=== PATIENT | female | born 1985 | race Caucasian/White ===

== ENCOUNTER 2016-06-28 17:38 | Emergency (ER) | payer OTHER ==
[2016-06-28 17:42] VITALS: BP 119/81; PULSE 90; RESP 16; TEMP 98.3
--- NOTE | 2016-06-28 18:49 | ED ---
Skin/Abscess/FB HPI - General Chief complaint: Skin/Abscess/Foreign Body Stated complaint: Abscess Time Seen by Provider: 06/28/16 18:34 Source: patient, RN notes reviewed Mode of arrival: ambulatory Limitations: no limitations - History of Present Illness Initial comments: 30-year-old female presents emergency Department chief complaint chest abscess. Patient states started a few days ago. She did have one similar this on her right hip in the past. Patient states she was never told she had MRSA. Patient denies fever or chills. She states it is very painful but there is no drainage. Patient denies any trauma - Related Data Previous Rx's Medication Instructions Recorded Sulfamethox-Tmp 800-160Mg [Bactrim 2 each PO Q12HR #56 tab 11/28/15 DS 800-160 mg] Hydrocodone/Acetaminophen [[place] 1 tab PO Q6HR PRN #15 tab 06/28/16 5-325] Sulfamethox-Tmp 800-160Mg [Bactrim 1 each PO Q12HR #20 tab 06/28/16 Ds] Allergies Allergy/AdvReac Type Severity Reaction Status Date / Time amoxicillin [Amoxicillin] Allergy Rash/Hives Verified 06/28/16 17:41 azithromycin AdvReac Intermediate Difficulty Verified 06/28/16 17:41 swallowing Review of Systems ROS Statement: Those systems with pertinent positive or pertinent negative responses have been documented in the HPI. ROS Other: All systems not noted in ROS Statement are negative. Past Medical History Past Medical History: No Reported History Additional Past Medical History / Comment(s): Obstetrical history: 3 Uncomplicated History of Any Multi-Drug Resistant Organisms: None Reported Past Surgical History: Tubal Ligation Past Anesthesia/Blood Transfusion Reactions: No Reported Reaction Past Psychological History: No Psychological Hx Reported Smoking Status: Current every day smoker Past Alcohol Use History: Occasional Past Drug Use History: None Reported - Past Family History Mother Family Medical History: No Reported History General Exam Limitations: no limitations General appearance: alert, in no apparent distress Neck exam: Present: normal inspection. Absent: tenderness, meningismus, lymphadenopathy Respiratory exam: Present: normal lung sounds bilaterally. Absent: respiratory distress, wheezes, rales, rhonchi, stridor Cardiovascular Exam: Present: regular rate, normal rhythm, normal heart sounds. Absent: systolic murmur, diastolic murmur, rubs, gallop, clicks Skin exam: Present: other (2 cm minimal fluctuant abscess on left breast towards the sternal border) Course Vital Signs 06/28/16 17:39 Temperature 98.3 F Pulse Rate 90 Respiratory 16 Rate Blood Pressure 119/81 O2 Sat by Pulse 100 Oximetry Procedures - Incision & Drainage Consent Obtained: verbal consent Site: chest Size (cm): 2 Anesthetic Used: lidocaine 1%, without epi Amount (mLs): 4 I&D Cleaning Method: Chloroprep Scalpel Used: #11 I&D Drainage Obtained: Pus, Blood Culture Obtained?: No Patient Tolerated Procedure: well, no complications Medical Decision Making - Medical Decision Making 30-year-old female presented for chest abscess. Patient's abscess was I&D to the emergency department when culture was obtained. Patient was placed on Bactrim at this time return parameters discussed warm compresses 20 minutes at a time. Disposition Clinical Impression: Chest wall abscess Disposition: HOME SELF-CARE Condition: Stable Instructions: Abscess Incision and Drainage (ED) Additional Instructions: Please return to the Emergency Department if symptoms worsen or any other concerns. Prescriptions: Hydrocodone/Acetaminophen [[place] 5-325] 1 tab PO Q6HR PRN #15 tab PRN Reason: Pain Sulfamethox-Tmp 800-160Mg [Bactrim Ds] 1 each PO Q12HR #20 tab Referrals: Vamsi Lincoln MD [Primary Care Provider] - 1-2 days Time of Disposition: 18:48
== END 2016-06-28 18:57 | disposition home or self-care (01) ==
LOC: EC 17:38
DX: L02.213 Cutaneous abscess of chest wall (principal); F17.200 Nicotine dependence, unspecified, uncomplicated; Z88.0 Allergy status to penicillin; Z88.1 Allergy status to other antibiotic agents
CPT/HCPCS: 10060; 87070; 87077; 87186; 87205; 99283

== ENCOUNTER 2016-07-07 16:12 | Emergency (ER) | payer OTHER ==
[2016-07-07 16:19] VITALS: RESP 18
--- NOTE | 2016-07-07 17:36 | ED ---
General Adult HPI - General Chief complaint: Skin/Abscess/Foreign Body Stated complaint: Lump on chest Time Seen by Provider: 07/07/16 17:28 Source: patient, RN notes reviewed, old records reviewed Mode of arrival: ambulatory Limitations: no limitations - History of Present Illness Initial comments: This is a 30-year-old female presenting to the emergency department with chief complaint of left breast abscess. Patient reports that she was seen here 2 weeks ago and was put on antibiotics. At that point it was drained but not much pus came out. Patient reports that they were taking the antibiotics for the past 2 weeks and seems to have grown and so gotten worse. Patient states that she's had no fever or chills. Denies any other surrounding areas of erythema or other areas of abscess.Patient denies any recent fever, chills, shortness of breath, chest pain, back pain, abdominal pain, nausea vomiting, numbness or tingling, dysuria or hematuria, constipation or diarrhea, headaches or visual changes, or any other current symptoms - Related Data Previous Rx's Medication Instructions Recorded Hydrocodone/Acetaminophen [[place] 1 tab PO Q6HR PRN #15 tab 06/28/16 5-325] Sulfamethox-Tmp 800-160Mg [Bactrim 1 each PO Q12HR #20 tab 06/28/16 Ds] Cephalexin [Keflex] 500 mg PO Q6H #40 cap 07/07/16 HYDROcodone/APAP 10-325MG [[place] 1 tab PO Q6H PRN #15 tab 07/07/16 10-325] Sulfamethox-Tmp 800-160Mg [Bactrim 2 tab PO Q12HR #40 tab 07/07/16 DS 800-160 mg] Allergies Allergy/AdvReac Type Severity Reaction Status Date / Time azithromycin Allergy Unknown Anaphylaxis Verified 07/07/16 16:19 amoxicillin [Amoxicillin] Allergy Anaphylaxis Verified 07/07/16 16:19 Review of Systems ROS Statement: Those systems with pertinent positive or pertinent negative responses have been documented in the HPI. ROS Other: All systems not noted in ROS Statement are negative. Past Medical History Past Medical History: No Reported History Additional Past Medical History / Comment(s): Obstetrical history: 3 Uncomplicated History of Any Multi-Drug Resistant Organisms: None Reported Past Surgical History: Tubal Ligation Past Anesthesia/Blood Transfusion Reactions: No Reported Reaction Past Psychological History: No Psychological Hx Reported Smoking Status: Current every day smoker Past Alcohol Use History: Occasional Past Drug Use History: None Reported - Past Family History Mother Family Medical History: No Reported History General Exam - General Exam Comments Initial Comments: 30-year-old female. No acute distress. Limitations: no limitations General appearance: alert, in no apparent distress Head exam: Present: atraumatic, normocephalic, normal inspection Eye exam: Present: normal appearance, PERRL, EOMI. Absent: scleral icterus, conjunctival injection, periorbital swelling ENT exam: Present: normal exam, mucous membranes moist Neck exam: Present: normal inspection. Absent: tenderness, meningismus, lymphadenopathy Respiratory exam: Present: normal lung sounds bilaterally, other (Left breast abscess measuring 3 cm x 4 cm.). Absent: respiratory distress, wheezes, rales, rhonchi, stridor Cardiovascular Exam: Present: regular rate, normal rhythm, normal heart sounds. Absent: systolic murmur, diastolic murmur, rubs, gallop, clicks GI/Abdominal exam: Present: soft, normal bowel sounds. Absent: distended, tenderness, guarding, rebound, rigid Extremities exam: Present: normal inspection, full ROM, normal capillary refill. Absent: tenderness, pedal edema, joint swelling, calf tenderness Back exam: Present: normal inspection Neurological exam: Present: alert, oriented X3, CN II-XII intact Psychiatric exam: Present: normal affect, normal mood Skin exam: Present: warm, dry, intact, normal color. Absent: rash Course Vital Signs 07/07/16 16:15 Temperature 97.8 F Pulse Rate 77 Respiratory 18 Rate Blood Pressure 146/93 O2 Sat by Pulse 99 Oximetry Procedures - Incision & Drainage Consent Obtained: verbal consent Time Out Performed?: Yes Site: chest (Left breast) Size (cm): 4 Anesthetic Used: lidocaine 1% Amount (mLs): 6 I&D Cleaning Method: Iodine Sterile Field Used?: Yes Scalpel Used: #11 I&D Drainage Obtained: Pus, Blood Culture Obtained?: Yes Patient Tolerated Procedure: well, no complications Medical Decision Making - Medical Decision Making This is a 30-year-old female presenting to the emergency department with chief complaint of left breast abscess. Patient reports that she was seen here 2 weeks ago and was put on antibiotics. At that point it was drained but not much pus came out. Patient reports that they were taking the antibiotics for the past week and seems to have grown and so gotten worse. Patient received incision and drainage today. Sitting without pus was drained from there. We did do iodoform packing. Patient was informed to remove the packing in 48 hours. Discussed we will increase her antibiotic dosage to Bactrim twice a day for the next 10 days. Patient understands treatment plan will comply. Return parameters were discussed. Discussed close follow-up with primary care provider as well. Disposition Clinical Impression: Left breast abscess Disposition: HOME SELF-CARE Condition: Good Instructions: Abscess Incision and Drainage (ED) Additional Instructions: Remove the packing in 48 hours. Monitor for any worsening signs of redness. Keep area covered, wash it every day. Return to the emergency department if any alarming signs or symptoms occur. Follow-up with a primary care doctor within the next 2-3 days. Prescriptions: Cephalexin [Keflex] 500 mg PO Q6H #40 cap HYDROcodone/APAP 10-325MG [[place] 10-325] 1 tab PO Q6H PRN #15 tab PRN Reason: Pain Sulfamethox-Tmp 800-160Mg [Bactrim DS 800-160 mg] 2 tab PO Q12HR #40 tab Referrals: Vamsi Lincoln MD [Primary Care Provider] - 1-2 days Time of Disposition: 17:59
[2016-07-07 18:12] VITALS: BP 113/75; PULSE 86; TEMP 99.5
== END 2016-07-07 18:12 | disposition home or self-care (01) ==
LOC: EC 16:12
DX: N61.1 Abscess of the breast and nipple (principal); F17.200 Nicotine dependence, unspecified, uncomplicated; Z88.0 Allergy status to penicillin; Z88.1 Allergy status to other antibiotic agents
CPT/HCPCS: 10060; 87070; 87205; 99284

== ENCOUNTER 2016-12-24 12:23 | Emergency (ER) | payer OTHER ==
[2016-12-24 12:48] VITALS: RESP 18
[2016-12-24] MEDS ORDERED: IBUPROFEN 600 MG TAB PO STA (12:55)
--- NOTE | 2016-12-24 12:59 | ED ---
Upper Extremity HPI - General Chief Complaint: Extremity Injury, Upper Stated Complaint: Finger Injury Time Seen by Provider: 12/24/16 12:49 Source: patient Mode of arrival: ambulatory Limitations: no limitations - History of Present Illness Initial Comments: This is a 31-year-old female patient who presents today for evaluation of an injury to her left pinky finger. Patient states last evening she was bringing groceries into the house when she tripped and fell injuring the finger. She denies hitting her head or losing consciousness during the fall. Denies any other injuries. States that her finger has been swollen and throbbing since the injury. She states she did take Tylenol however this did not help with the pain. She denies any numbness or tingling to the finger. States she is able to move it but it is very painful. Patient denies any headache, neck pain, back pain, chest pain, shortness of breath, dizziness, weakness, abdominal pain, nausea, vomiting, or difficulties with bowel movements or urination. - Related Data Home Medications Medication Instructions Recorded Confirmed Sulfamethox-Tmp 800-160Mg [Bactrim 1 tab PO Q12HR 07/07/16 07/07/16 Ds] Previous Rx's Medication Instructions Recorded Hydrocodone/Acetaminophen [[place] 1 tab PO Q6HR PRN #15 tab 06/28/16 5-325] Cephalexin [Keflex] 500 mg PO Q6H #40 cap 07/07/16 HYDROcodone/APAP 10-325MG [[place] 1 tab PO Q6H PRN #15 tab 07/07/16 10-325] Sulfamethox-Tmp 800-160Mg [Bactrim 2 tab PO Q12HR #40 tab 07/07/16 DS 800-160 mg] Ibuprofen [Motrin] 600 mg PO Q6HR PRN #20 tab 12/24/16 Allergies Allergy/AdvReac Type Severity Reaction Status Date / Time azithromycin Allergy Unknown Anaphylaxis Verified 12/24/16 12:48 amoxicillin [Amoxicillin] Allergy Anaphylaxis Verified 12/24/16 12:48 Review of Systems ROS Statement: Those systems with pertinent positive or pertinent negative responses have been documented in the HPI. ROS Other: All systems not noted in ROS Statement are negative. Past Medical History Past Medical History: No Reported History Additional Past Medical History / Comment(s): Obstetrical history: 3 Uncomplicated History of Any Multi-Drug Resistant Organisms: None Reported Past Surgical History: Tubal Ligation Past Anesthesia/Blood Transfusion Reactions: No Reported Reaction Past Psychological History: No Psychological Hx Reported Smoking Status: Current every day smoker Past Alcohol Use History: Rare Past Drug Use History: None Reported - Past Family History Mother Family Medical History: No Reported History General Exam Limitations: no limitations General appearance: alert, in no apparent distress, other (This is a well- developed, well-nourished adult female patient in no acute distress. Vital signs upon presentation were temperature 98.0F, pulse 102, respirations 18, blood pressure 139/82, pulse ox 100% on room air.) Eye exam: Present: normal appearance, PERRL, EOMI. Absent: scleral icterus, conjunctival injection, periorbital swelling Neck exam: Present: other Respiratory exam: Present: normal lung sounds bilaterally. Absent: respiratory distress, wheezes, rales, rhonchi, stridor Cardiovascular Exam: Present: regular rate, normal rhythm, normal heart sounds. Absent: systolic murmur, diastolic murmur, rubs, gallop, clicks Extremities exam: Present: full ROM, tenderness (Tenderness over the distal left pinky.), normal capillary refill, other (Swelling noted to the distal aspect of the left pinky. Skin is otherwise pink, warm, and dry. Cap refills less than 3 seconds. Radial pulses 2+ and equal bilaterally.). Absent: pedal edema, joint swelling, calf tenderness Neurological exam: Present: alert, oriented X3, CN II-XII intact Psychiatric exam: Present: normal affect, normal mood Skin exam: Present: warm, dry, intact, normal color. Absent: rash Course Vital Signs 12/24/16 12/24/16 12:46 13:48 Temperature 98.0 F 98 F Pulse Rate 102 H 97 Respiratory 18 18 Rate Blood Pressure 139/82 126/69 O2 Sat by Pulse 100 10 L Oximetry Medical Decision Making - Medical Decision Making 31-year-old female patient presented to the emergency department today for evaluation of injury to her left fifth digit. Physical exam did reveal some swelling to the distal tip of the finger. X-ray was obtained and did show an avulsion fracture. Patient was placed in a finger splint and instructed to rest and ice the extremity. She is instructed to follow-up with her primary care physician for recheck in 1-2 days. She is instructed to return here immediately for any new, worsening, or concerning symptoms. She verbalizes understanding and agrees with this plan. - Radiology Data Radiology results: report reviewed, image reviewed 4 view x-ray of the left fifth digit shows an avulsion fracture of the dorsal aspect of the base of the terminal phalanx. No metacarpal have her malady is seen. Impression by Dr. Bingham shows avulsion fracture of the dorsal plate of the distal phalanx of the left small digit. Disposition Clinical Impression: Finger fracture, left Disposition: HOME SELF-CARE Condition: Good Instructions: Finger Fracture (ED) Additional Instructions: Wear splint for comfort. Limit use of the left hand. Take pain medication as directed. Follow-up with her primary care physician for recheck in 1-2 days. Return here immediately for any new, worsening, or concerning symptoms. Prescriptions: Ibuprofen [Motrin] 600 mg PO Q6HR PRN #20 tab PRN Reason: Pain Referrals: Vamsi Lincoln MD [Primary Care Provider] - 1-2 days Time of Disposition: 13:42
--- NOTE | 2016-12-24 13:17 | XR ---
EXAMINATION TYPE: XR finger LT , 4 VIEWS DATE OF EXAM ORDERED: 12/24/2016 HISTORY: Pain. COMPARISON: None. FINDINGS: There is avulsion fracture of the dorsal aspect of the base of the terminal phalanx of the left fifth digit. No metacarpal abnormality is seen. IMPRESSION: AVULSION FRACTURE OF THE DORSAL PLATE OF THE DISTAL PHALANX OF THE LEFT SMALL DIGIT.
[2016-12-24 13:55] VITALS: BP 126/69; PULSE 97; TEMP 98
== END 2016-12-24 13:49 | disposition home or self-care (01) ==
LOC: EC 12:23
DX: S62.637A Displaced fracture of distal phalanx of left little finger, initial encounter for closed fracture (principal); F17.200 Nicotine dependence, unspecified, uncomplicated; Z88.0 Allergy status to penicillin; Z88.1 Allergy status to other antibiotic agents; W01.0XXA Fall on same level from slipping, tripping and stumbling without subsequent striking against object, initial encounter; Y93.89 Activity, other specified
CPT/HCPCS: 99283

== ENCOUNTER 2017-12-27 02:03 | Emergency (ER) | payer OTHER ==
[2017-12-27 02:13] VITALS: RESP 16
[2017-12-27] MEDS ORDERED: HYDROcodone/APAP 5-325MG 1 EACH TAB PO STA (02:22)
[2017-12-27] MEDS ORDERED: TOPICAL SKIN ADHESIVE 1 EACH AMP TOPICAL ONE (02:23)
[2017-12-27] MEDS ORDERED: IBUPROFEN 600 MG TAB PO STA (02:23)
[2017-12-27] MEDS ORDERED: DIPH,PERTUS(ACELL)TETVAC-LF 0.5 ML VIAL IM ONE (02:34)
--- NOTE | 2017-12-27 02:35 | ED ---
Fall HPI - General Chief Complaint: Fall Stated Complaint: fall Time Seen by Provider: 12/27/17 02:14 Source: patient Mode of arrival: ambulatory - History of Present Illness Initial Comments: 32-year-old female patient presents to the emergency department today for evaluation of facial injury. Patient states around 145 this morning she tripped over a shoe and fell striking her face on the dining room table. Patient denies any loss of consciousness. She denies any current headache, blurred vision, double vision, nausea, vomiting, dizziness, or weakness. Patient states she did sustain a laceration to the right maxillary region and has significant pain to the area. She denies any pain to the eye globe or foreign body sensation to the eye. Patient denies any epistaxis, neck pain, back pain, or other injuries. Patient denies any chest pain, shortness of breath , abdominal pain, nausea, vomiting, or difficulties with bowel movements or urination. - Related Data Home Medications Medication Instructions Recorded Confirmed Sulfamethox-Tmp 800-160Mg [Bactrim 1 tab PO Q12HR 07/07/16 07/07/16 Ds] Previous Rx's Medication Instructions Recorded Hydrocodone/Acetaminophen [[place] 1 tab PO Q6HR PRN #15 tab 06/28/16 5-325] Cephalexin [Keflex] 500 mg PO Q6H #40 cap 07/07/16 HYDROcodone/APAP 10-325MG [[place] 1 tab PO Q6H PRN #15 tab 07/07/16 10-325] Sulfamethox-Tmp 800-160Mg [Bactrim 2 tab PO Q12HR #40 tab 07/07/16 DS 800-160 mg] Ibuprofen [Motrin] 600 mg PO Q6HR PRN #20 tab 12/24/16 Ibuprofen [Motrin] 600 mg PO Q8HR PRN #30 tab 12/27/17 Allergies Allergy/AdvReac Type Severity Reaction Status Date / Time azithromycin Allergy Unknown Anaphylaxis Verified 12/27/17 02:13 amoxicillin [Amoxicillin] Allergy Anaphylaxis Verified 12/27/17 02:13 Review of Systems ROS Statement: Those systems with pertinent positive or pertinent negative responses have been documented in the HPI. ROS Other: All systems not noted in ROS Statement are negative. Past Medical History Past Medical History: No Reported History Additional Past Medical History / Comment(s): Obstetrical history: 3 Uncomplicated History of Any Multi-Drug Resistant Organisms: None Reported Past Surgical History: Tubal Ligation Past Anesthesia/Blood Transfusion Reactions: No Reported Reaction Past Psychological History: No Psychological Hx Reported Smoking Status: Current every day smoker Past Alcohol Use History: Rare Past Drug Use History: None Reported - Past Family History Mother Family Medical History: No Reported History General Exam Limitations: no limitations General appearance: alert, in no apparent distress, other (This is a well- developed, well-nourished adult female patient in no acute distress. Vital signs upon presentation are temperature 98.6F, pulse 129, respirations 16, blood pressure 119/76, pulse ox 97% on room air.) Eye exam: Present: normal appearance, PERRL, EOMI, periorbital swelling ( Swelling to the suborbital region), periorbital tenderness (Right suborbital tenderness), other (There is ecchymosis, swelling, and 1 cm laceration to the right suborbital region. Extraocular movements are intact. There is no evidence of globe injury. No hyphema.). Absent: scleral icterus, conjunctival injection Course Vital Signs 12/27/17 02:08 Temperature 98.6 F Pulse Rate 129 H Respiratory 16 Rate Blood Pressure 119/76 O2 Sat by Pulse 97 Oximetry Medical Decision Making - Medical Decision Making 32-year-old female patient presented to the emergency department today for evaluation of laceration to the face and facial contusion after expressing a trip and fall accident at home. Physical examination did reveal a 1 cm laceration to the right maxillary region, some swelling and ecchymosis noted to the right suborbital region. Patient is neurologically intact with no loss of consciousness, denies current headache. Did repair laceration using exofin skin adhesive. CT facial bones was obtained and showed no evidence of fracture. Patient will be discharged home with prescription for ibuprofen for pain control. She is instructed to apply ice to the area. Return parameters discussed in detail. He verbalizes understanding and agree with this plan. - Radiology Data Radiology results: report reviewed CT facial bones without contrast was obtained. Report was reviewed in its entirety. Impression by Dr. Villavicencio shows small mucous retention cyst in the maxillary sinuses. No fracture seen. Disposition Clinical Impression: Black eye of right side, Facial laceration Disposition: HOME SELF-CARE Condition: Good Instructions: Laceration (ED), Black Eye (ED), Facial Contusion (ED) Additional Instructions: Apply ice to the painful areas. Do not scrub or pick at glue. Let this dissolve on its own. Monitor for signs of infection including but not limited to redness , swelling, drainage of pus, fever, or chills. Follow-up through primary care physician for recheck in 1-2 days. Return immediately for any new, worsening, or concerning symptoms. Prescriptions: Ibuprofen [Motrin] 600 mg PO Q8HR PRN #30 tab PRN Reason: Pain Is patient prescribed a controlled substance at d/c from ED?: No Referrals: Vamsi Lincoln MD [Primary Care Provider] - 1-2 days Time of Disposition: 03:12
--- NOTE | 2017-12-27 02:48 | CT ---
EXAMINATION TYPE: CT facial bones wo con DATE OF EXAM: 12/27/2017 COMPARISON: None HISTORY: Fall, left facial lacerations CT DLP: 3191.60 mGycm Automated exposure control for dose reduction was used. TECHNIQUE: CT scan of the sinuses is performed without contrast, axial images are obtained, coronal r eformatted images are also reviewed. FINDINGS: There are small mucous retention cysts in the maxillary sinuses. There is no evidence of a blowout fracture. Orbital margins are intact. There is no evidence of retro-orbital mass. Nasal bone appears intact. Maxilla is intact. Zygomatic arches appear normal. The mandibular ring appears intact . Temporomandibular joints appear normal. Mastoid air cells appear normal. Temporal bones appear intact. IMPRESSION: Small mucous retention cysts in the maxillary sinuses. No fracture seen.
[2017-12-27 04:06] VITALS: BP 119/97; PULSE 97; TEMP 98.1
== END 2017-12-27 03:48 | disposition home or self-care (01) ==
LOC: EC 02:03
DX: S01.81XA Laceration without foreign body of other part of head, initial encounter (principal); Z23 Encounter for immunization; F17.200 Nicotine dependence, unspecified, uncomplicated; Z88.0 Allergy status to penicillin; Z88.1 Allergy status to other antibiotic agents; W01.198A Fall on same level from slipping, tripping and stumbling with subsequent striking against other object, initial encounter; Y92.009 Unspecified place in unspecified non-institutional (private) residence as the place of occurrence of the external cause
CPT/HCPCS: 70486; 90471; 90715; 99284

== ENCOUNTER 2018-06-20 10:39 | Emergency (ER) | payer OTHER ==
[2018-06-20 10:43] VITALS: BP 127/84; PULSE 97; RESP 20; TEMP 97.8
[2018-06-20] MEDS ORDERED: LIDOCAINE 1% INJ 10MG/ML (20 ML MDV) SQ ONE (10:54)
--- NOTE | 2018-06-20 11:23 | ED ---
General Adult HPI - General Chief complaint: Skin/Abscess/Foreign Body Stated complaint: abscess behind ear Time Seen by Provider: 06/20/18 10:48 Source: patient, RN notes reviewed Mode of arrival: ambulatory Limitations: no limitations - History of Present Illness Initial comments: Patient is a pleasant 32-year-old female presenting to the emergency Department with swelling behind her left ear. Patient states there has been some drainage. Patient has had similar symptoms 3 times previously and had drainage done. Patient states that is causing discomfort. No other area of involvement. Patient has had similar problems in her hip and breast previously as well. None at this time. No fevers. Patient has not seen an ENT previously for this. - Related Data Previous Rx's Medication Instructions Recorded Sulfamethox-Tmp 800-160Mg [Bactrim 2 each PO Q12HR #40 tab 06/20/18 DS 800-160 mg] Allergies Allergy/AdvReac Type Severity Reaction Status Date / Time azithromycin Allergy Unknown Anaphylaxis Verified 06/20/18 10:59 amoxicillin [Amoxicillin] Allergy Anaphylaxis Verified 06/20/18 10:59 Review of Systems ROS Statement: Those systems with pertinent positive or pertinent negative responses have been documented in the HPI. ROS Other: All systems not noted in ROS Statement are negative. Constitutional: Denies: fever Eyes: Denies: eye pain ENT: Reports: as per HPI Respiratory: Denies: cough Cardiovascular: Denies: chest pain Endocrine: Denies: fatigue Gastrointestinal: Denies: abdominal pain Genitourinary: Denies: dysuria Musculoskeletal: Denies: back pain Skin: Reports: as per HPI Past Medical History Past Medical History: No Reported History Additional Past Medical History / Comment(s): Obstetrical history: 3 Uncomplicated History of Any Multi-Drug Resistant Organisms: None Reported Past Surgical History: Tubal Ligation Past Anesthesia/Blood Transfusion Reactions: No Reported Reaction Past Psychological History: No Psychological Hx Reported Smoking Status: Current every day smoker Past Alcohol Use History: Rare Past Drug Use History: None Reported - Past Family History Mother Family Medical History: No Reported History General Exam Limitations: no limitations General appearance: alert, in no apparent distress Head exam: Present: atraumatic Eye exam: Present: normal appearance ENT exam: Present: other (Swelling posterior to the left ear) Neck exam: Present: normal inspection Respiratory exam: Present: normal lung sounds bilaterally Cardiovascular Exam: Present: regular rate, normal rhythm GI/Abdominal exam: Present: soft. Absent: tenderness Neurological exam: Present: alert Psychiatric exam: Present: normal affect, normal mood Skin exam: Present: other (Posterior to the left ear there is approximately 2 cm area of soft tissue swelling with firmness/fluctuance. There is tenderness and erythema.) Course Vital Signs 06/20/18 10:41 Temperature 97.8 F Pulse Rate 97 Respiratory 20 Rate Blood Pressure 127/84 O2 Sat by Pulse 99 Oximetry Procedures - Incision & Drainage Consent Obtained: verbal consent Site: face (Posterior to the left ear) Size (cm): 2 Anesthetic Used: lidocaine 1% I&D Cleaning Method: Betadine Scalpel Used: #11 I&D Drainage Obtained: Pus Culture Obtained?: Yes Patient Tolerated Procedure: well, no complications Disposition Clinical Impression: Abscess, postauricular Disposition: HOME SELF-CARE Condition: Stable Instructions (If sedation given, give patient instructions): Abscess (ED) Additional Instructions: Please follow-up with primary care physician in the next couple days for recheck. Please also follow-up with ENT. Return for increased pain, swelling, redness, fevers, hearing loss, facial weakness, worsening symptoms or other concerns. Prescriptions: Sulfamethox-Tmp 800-160Mg [Bactrim DS 800-160 mg] 2 each PO Q12HR #40 tab Is patient prescribed a controlled substance at d/c from ED?: No Referrals: Vamsi Lincoln MD [Primary Care Provider] - 1-2 days Ben Mckay MD [STAFF PHYSICIAN] - 1-2 days Time of Disposition: 11:25
== END 2018-06-20 11:42 | disposition home or self-care (01) ==
LOC: EC 10:39
DX: H60.02 Abscess of left external ear (principal); F17.200 Nicotine dependence, unspecified, uncomplicated; Z88.0 Allergy status to penicillin; Z88.1 Allergy status to other antibiotic agents
CPT/HCPCS: 87070; 87205; 99283; 69000; J2001

== ENCOUNTER 2018-07-08 17:27 | Emergency (ER) | payer OTHER ==
[2018-07-08 17:31] VITALS: BP 116/78; PULSE 72; RESP 18; TEMP 98.9
--- NOTE | 2018-07-08 18:33 | ED ---
General Adult HPI - General Chief complaint: ENT Stated complaint: ENT Time Seen by Provider: 07/08/18 17:33 Source: patient, RN notes reviewed Mode of arrival: ambulatory Limitations: no limitations - History of Present Illness Initial comments: 32-year-old presents to the emergency department for a chief complaint of left ear pain. Patient states this started today. Denies fevers or chills. Denies any recent illnesses. Denies significant congestion. Denies any throat pain or cough. Denies any history of diabetes.Patient has no other complaints at this time including shortness of breath, chest pain, abdominal pain, nausea or vomiting, headache, or visual changes. - Related Data Previous Rx's Medication Instructions Recorded Clindamycin HCl [Cleocin] 300 mg PO Q6HR #28 cap 07/08/18 Allergies Allergy/AdvReac Type Severity Reaction Status Date / Time azithromycin Allergy Unknown Anaphylaxis Verified 07/08/18 17:37 amoxicillin [Amoxicillin] Allergy Anaphylaxis Verified 07/08/18 17:37 Review of Systems ROS Statement: Those systems with pertinent positive or pertinent negative responses have been documented in the HPI. ROS Other: All systems not noted in ROS Statement are negative. Past Medical History Past Medical History: No Reported History Additional Past Medical History / Comment(s): Obstetrical history: 3 Uncomplicated History of Any Multi-Drug Resistant Organisms: None Reported Past Surgical History: Tubal Ligation Past Anesthesia/Blood Transfusion Reactions: No Reported Reaction Past Psychological History: No Psychological Hx Reported Smoking Status: Current every day smoker Past Alcohol Use History: Rare Past Drug Use History: None Reported - Past Family History Mother Family Medical History: No Reported History General Exam Limitations: no limitations General appearance: alert, in no apparent distress Head exam: Present: atraumatic, normocephalic, normal inspection Eye exam: Present: normal appearance, PERRL, EOMI. Absent: scleral icterus, conjunctival injection, periorbital swelling ENT exam: Present: normal exam, normal oropharynx, mucous membranes moist, normal external ear exam (No tenderness with traction of the tragus. No edema of the external auditory canal.), other (No tenderness to the mastoid). Absent: TM's normal bilaterally (erythematous TM without buldging or evidence of perforation) Neck exam: Present: normal inspection, full ROM. Absent: tenderness, meningismus, lymphadenopathy Respiratory exam: Present: normal lung sounds bilaterally. Absent: respiratory distress, wheezes, rales, rhonchi, stridor Cardiovascular Exam: Present: regular rate, normal rhythm, normal heart sounds. Absent: systolic murmur, diastolic murmur, rubs, gallop, clicks Neurological exam: Present: alert, oriented X3, CN II-XII intact Psychiatric exam: Present: normal affect, normal mood Course Vital Signs 07/08/18 17:29 Temperature 98.9 F Pulse Rate 72 Respiratory 18 Rate Blood Pressure 116/78 O2 Sat by Pulse 99 Oximetry Medical Decision Making - Medical Decision Making 32-year-old female presents for left ear pain times one day. No history of diabetes. On exam patient does have an erythematous left tympanic membrane. No edema of the external auditory canal. No mastoid tenderness. No history of diabetes. Patient likely has an otitis media. Patient is severely penicillin ALLERGIC was ALLERGIC to azithromycin. She will therefore be treated with clindamycin. She will follow up with primary care in 1-2 days. She'll return here she has any worsening symptoms. Disposition Clinical Impression: Left ear pain, Otitis media Disposition: HOME SELF-CARE Condition: Good Instructions (If sedation given, give patient instructions): Earache (ED) Additional Instructions: Please take antibiotic as directed. Please follow-up with primary care in 1-2 days. Return here for any worsening symptoms. Prescriptions: Clindamycin HCl [Cleocin] 300 mg PO Q6HR #28 cap Is patient prescribed a controlled substance at d/c from ED?: No Referrals: Vamsi Lincoln MD [Primary Care Provider] - 1-2 days Time of Disposition: 18:29
== END 2018-07-08 18:39 | disposition home or self-care (01) ==
LOC: EC 17:27
DX: H66.92 Otitis media, unspecified, left ear (principal); F17.200 Nicotine dependence, unspecified, uncomplicated; Z88.0 Allergy status to penicillin; Z88.1 Allergy status to other antibiotic agents
CPT/HCPCS: 99282

== ENCOUNTER 2018-08-10 18:35 | Emergency (ER) | payer OTHER ==
[2018-08-10 18:59] VITALS: BP 127/82; PULSE 92; RESP 16; TEMP 99.1
--- NOTE | 2018-08-10 19:44 | XR ---
EXAMINATION TYPE: XR ankle complete LT DATE OF EXAM: 08/10/2018 COMPARISON: NONE HISTORY: Ankle pain TECHNIQUE: 3 views FINDINGS: I see no fracture nor dislocation. Ankle mortise is anatomic. Joint spaces are normal. IMPRESSION: Negative left ankle exam.
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
== END 2018-08-10 20:17 | disposition home or self-care (01) ==
LOC: EC 18:35
DX: S93.402A Sprain of unspecified ligament of left ankle, initial encounter (principal); J39.2 Other diseases of pharynx; F17.200 Nicotine dependence, unspecified, uncomplicated; Z88.0 Allergy status to penicillin; Z88.1 Allergy status to other antibiotic agents; W51.XXXA Accidental striking against or bumped into by another person, initial encounter; Y93.89 Activity, other specified
CPT/HCPCS: 99283

== ENCOUNTER 2018-11-21 17:50 | Inpatient (IN) | payer OTHER ==
[2018-11-21] MEDS ORDERED: SODIUM CHLORIDE 0.9% 1,000 ML IV STA (18:41)
[2018-11-21] MEDS ORDERED: ONDANSETRON 4 MG/2 ML VIAL IVP STA (18:41)
[2018-11-21] MEDS ORDERED: KETOROLAC 30 MG/ML 1 ML VIAL IVP STA (18:41)
[2018-11-21] MEDS ORDERED: DICYCLOMINE 10 MG/ML 2 ML AMP IM STA (18:41)
--- NOTE | 2018-11-21 18:46 | ED ---
General Adult HPI <Colt Mccormick - Last Filed: 11/21/18 21:28> - General Source: patient, RN notes reviewed Mode of arrival: ambulatory Limitations: no limitations <Dyllan Fernando - Last Filed: 11/21/18 22:12> - General Chief complaint: Abdominal Pain Stated complaint: Abd pain Time Seen by Provider: 11/21/18 18:07 - History of Present Illness Initial comments: 33-year-old female with a past medical history of tubal ligation presents to the emergency department for a chief complaint of abdominal pain. Patient states that she has been having intermittent cramping abdominal pain that started last night. States that this pain lasts first few seconds and is sharp and cramping in nature around her whole abdomen. States that it then resolved and she has no pain. States that she has had several episodes of watery diarrhea and 2-3 episodes of vomiting. Patient did eat pork chops last night.Patient has no other complaints at this time including shortness of breath, chest pain, headache, or visual changes. (Dyllan Fernando) - Related Data Home Medications Medication Instructions Recorded Confirmed No Known Home Medications 11/21/18 11/21/18 Allergies Allergy/AdvReac Type Severity Reaction Status Date / Time azithromycin Allergy Unknown Anaphylaxis Verified 11/21/18 18:47 amoxicillin [Amoxicillin] Allergy Anaphylaxis Verified 11/21/18 18:47 Review of Systems ROS Other: All systems not noted in ROS Statement are negative. <Colt Mccormick - Last Filed: 11/21/18 21:28> ROS Other: All systems not noted in ROS Statement are negative. <Dyllan Fernando - Last Filed: 11/21/18 22:12> ROS Statement: Those systems with pertinent positive or pertinent negative responses have been documented in the HPI. Past Medical History Past Medical History: No Reported History Additional Past Medical History / Comment(s): Obstetrical history: 3 Uncomplicated History of Any Multi-Drug Resistant Organisms: None Reported Past Surgical History: Tubal Ligation Past Anesthesia/Blood Transfusion Reactions: No Reported Reaction Past Psychological History: No Psychological Hx Reported Smoking Status: Current every day smoker Past Alcohol Use History: Occasional Past Drug Use History: None Reported - Past Family History Mother Family Medical History: No Reported History <Dyllan Fernando - Last Filed: 11/21/18 22:12> General Exam Limitations: no limitations General appearance: alert, in no apparent distress Head exam: Present: atraumatic, normocephalic, normal inspection Eye exam: Present: normal appearance, PERRL, EOMI. Absent: scleral icterus, conjunctival injection, periorbital swelling ENT exam: Present: normal exam, mucous membranes moist Neck exam: Present: normal inspection. Absent: tenderness, meningismus, lymphadenopathy Respiratory exam: Present: normal lung sounds bilaterally. Absent: respiratory distress, wheezes, rales, rhonchi, stridor Cardiovascular Exam: Present: regular rate, normal rhythm, normal heart sounds. Absent: systolic murmur, diastolic murmur, rubs, gallop, clicks GI/Abdominal exam: Present: soft, tenderness (Mild generalized tenderness), normal bowel sounds. Absent: distended, guarding, rebound (No rebound or guarding), rigid Expanded GI/Abdominal exam: Absent: psoas sign, obturator sign, heel tap sign, Chang's sign, Rovsing's sign, tenderness at McBurney's Point <Dyllan Fernando P - Last Filed: 11/21/18 22:12> Course Vital Signs 11/21/18 11/21/18 11/21/18 17:53 19:39 21:40 Temperature 98.2 F 97.8 F Pulse Rate 100 77 61 Respiratory 16 18 18 Rate Blood Pressure 98/61 101/80 116/68 O2 Sat by Pulse 99 99 97 Oximetry Medical Decision Making - Lab Data Result diagrams: 11/21/18 18:44 11/21/18 18:44 <Colt Mccormick - Last Filed: 11/21/18 21:28> - Lab Data Result diagrams: 11/21/18 18:44 11/21/18 18:44 <Dyllan Fernando - Last Filed: 11/21/18 22:12> - Medical Decision Making Case discussed with practitioner Michael. Chart and results reviewed. Case also discussed with Dr. Cordova, who will admit covering for [facility]. He does request surgical consult with Dr. Cannon. (Colt Mccormick) Vitals are stable. X-ray was obtained which showed findings suggestive of partial small bowel obstruction or early complete small bowel obstruction. Therefore CT abdomen and pelvis was ordered which shows wall thickening and some dilation of the distal small bowel suggestive of ileus or partial mechanical obstruction. Wall thickening could relate to inflammatory bowel disease. There is also mild to moderate ascites fluid consistent with inflammatory process. White blood cell count of 12 is likely reactive to inflammation. Patient continues to have abdominal pain. At this time patient will be admitted for further management of possible bowel obstruction. Is agreeable to this. (Dyllan Fernando) - Lab Data Lab Results 11/21/18 11/21/18 11/21/18 Range/Units 18:30 18:30 18:44 WBC (3.8-10.6) k/uL RBC (3.80-5.40) m/uL Hgb (11.4-16.0) gm/dL Hct (34.0-46.0) % MCV (80.0-100.0) fL MCH (25.0-35.0) pg MCHC (31.0-37.0) g/dL RDW (11.5-15.5) % Plt Count (150-450) k/uL Neutrophils % % Lymphocytes % % Monocytes % % Eosinophils % % Basophils % % Neutrophils # (1.3-7.7) k/uL Lymphocytes # (1.0-4.8) k/uL Monocytes # (0-1.0) k/uL Eosinophils # (0-0.7) k/uL Basophils # (0-0.2) k/uL Sodium 138 (137-145) mmol/L Potassium 4.1 (3.5-5.1) mmol/L Chloride 105 (98-107) mmol/L Carbon Dioxide 24 (22-30) mmol/L Anion Gap 9 mmol/L BUN 9 (7-17) mg/dL Creatinine 0.65 (0.52-1.04) mg/dL Est GFR (CKD-EPI)AfAm >90 (>60 ml/min/1.73 sqM) Est GFR (CKD-EPI)NonAf >90 (>60 ml/min/1.73 sqM) Glucose 104 H (74-99) mg/dL Calcium 9.8 (8.4-10.2) mg/dL Total Bilirubin 0.4 (0.2-1.3) mg/dL AST 16 (14-36) U/L ALT 13 (9-52) U/L Alkaline Phosphatase 52 (38-126) U/L Total Protein 7.1 (6.3-8.2) g/dL Albumin 4.1 (3.5-5.0) g/dL Amylase 65 (30-110) U/L Lipase 122 (23-300) U/L Urine Color Yellow Urine Appearance Cloudy H (Clear) Urine pH 6.0 (5.0-8.0) Ur Specific [place] 1.021 (1.001-1.035) Urine Protein Trace H (Negative) Urine Glucose (UA) Negative (Negative) Urine Ketones Negative (Negative) Urine Blood Moderate H (Negative) Urine Nitrite Negative (Negative) Urine Bilirubin Negative (Negative) Urine Urobilinogen <2.0 (<2.0) mg/dL Ur Leukocyte Esterase Negative (Negative) Urine RBC 19 H (0-5) /hpf Urine WBC 2 (0-5) /hpf Ur Squamous Epith Cells 7 H (0-4) /hpf Urine Bacteria Rare H (None) /hpf Urine Mucus Few H (None) /hpf Urine HCG, Qual Not Detected (Not Detectd) 11/21/18 Range/Units 18:44 WBC 12.1 H (3.8-10.6) k/uL RBC 5.14 (3.80-5.40) m/uL Hgb 14.6 (11.4-16.0) gm/dL Hct 45.1 (34.0-46.0) % MCV 87.7 (80.0-100.0) fL MCH 28.3 (25.0-35.0) pg MCHC 32.3 (31.0-37.0) g/dL RDW 14.3 (11.5-15.5) % Plt Count 384 (150-450) k/uL Neutrophils % 71 % Lymphocytes % 21 % Monocytes % 4 % Eosinophils % 3 % Basophils % 0 % Neutrophils # 8.6 H (1.3-7.7) k/uL Lymphocytes # 2.5 (1.0-4.8) k/uL Monocytes # 0.5 (0-1.0) k/uL Eosinophils # 0.4 (0-0.7) k/uL Basophils # 0.0 (0-0.2) k/uL Sodium (137-145) mmol/L Potassium (3.5-5.1) mmol/L Chloride (98-107) mmol/L Carbon Dioxide (22-30) mmol/L Anion Gap mmol/L BUN (7-17) mg/dL Creatinine (0.52-1.04) mg/dL Est GFR (CKD-EPI)AfAm (>60 ml/min/1.73 sqM) Est GFR (CKD-EPI)NonAf (>60 ml/min/1.73 sqM) Glucose (74-99) mg/dL Calcium (8.4-10.2) mg/dL Total Bilirubin (0.2-1.3) mg/dL AST (14-36) U/L ALT (9-52) U/L Alkaline Phosphatase (38-126) U/L Total Protein (6.3-8.2) g/dL Albumin (3.5-5.0) g/dL Amylase (30-110) U/L Lipase (23-300) U/L Urine Color Urine Appearance (Clear) Urine pH (5.0-8.0) Ur Specific [place] (1.001-1.035) Urine Protein (Negative) Urine Glucose (UA) (Negative) Urine Ketones (Negative) Urine Blood (Negative) Urine Nitrite (Negative) Urine Bilirubin (Negative) Urine Urobilinogen (<2.0) mg/dL Ur Leukocyte Esterase (Negative) Urine RBC (0-5) /hpf Urine WBC (0-5) /hpf Ur Squamous Epith Cells (0-4) /hpf Urine Bacteria (None) /hpf Urine Mucus (None) /hpf Urine HCG, Qual (Not Detectd) Disposition <Colt Mccormick - Last Filed: 11/21/18 21:28> Is patient prescribed a controlled substance at d/c from ED?: No Time of Disposition: 22:12 <Dyllan Fernando - Last Filed: 11/21/18 22:12> Clinical Impression: Small bowel obstruction Disposition: ADMITTED IP TO THIS HOSP Condition: Fair Referrals: Xiao Pittman DO [Primary Care Provider] - 1-2 days
[2018-11-21 19:11] LABS: Appearance,Urine Cloudy (Clear); Bacteria,Urine Rare /hpf; Bilirubin,Urine Negative (Negative); Blood,Urine Moderate (Negative); Color,Urine Yellow; Glucose,Urine (UA) Negative (Negative); Ketones,Urine Negative (Negative); Leukocyte Esterase,Urine Negative (Negative); Mucus,Urine Few /hpf; Nitrite,Urine Negative (Negative); Protein,Urine Trace (Negative); RBC,Urine 19 /hpf (0-5); Specific Gravity,Urine 1.021 (1.001-1.035); Squamous Epithelial Cell,Urine 7 /hpf (0-4); Urobilinogen,Urine <2.0 mg/dL (<2.0); WBC,Urine 2 /hpf (0-5)
[2018-11-21 19:14] LABS: Basophils % (A) 0 %; Eosinophils # (A) 0.4 k/uL (0-0.7); Eosinophils % (A) 3 %; HCT 45.1 % (34.0-46.0); HGB 14.6 gm/dL (11.4-16.0); Lymphocytes # (A) 2.5 k/uL (1.0-4.8); Lymphocytes % (A) 21 %; MCH 28.3 pg (25.0-35.0); MCHC 32.3 g/dL (31.0-37.0); MCV 87.7 fL (80.0-100.0); Mean Platelet Volume 6.3; Monocytes # (A) 0.5 k/uL (0-1.0); Monocytes % (A) 4 %; Neutrophils # (A) 8.6 k/uL (1.3-7.7); Neutrophils % (A) 71 %; Platelet Count 384 k/uL (150-450); RBC 5.14 m/uL (3.80-5.40); RDW 14.3 % (11.5-15.5); WBC 12.1 k/uL (3.8-10.6)
[2018-11-21 19:16] LABS: ALT 13 U/L (9-52); AST 16 U/L (14-36); African American GFR (CKD) >90 (>60 ml/min/1.73 sqM); Albumin 4.1 g/dL (3.5-5.0); Alkaline Phosphatase 52 U/L (38-126); Amylase 65 U/L (30-110); Anion Gap 9 mmol/L; Blood Urea Nitrogen 9 mg/dL (7-17); Calcium 9.8 mg/dL (8.4-10.2); Carbon Dioxide 24 mmol/L (22-30); Chloride 105 mmol/L (98-107); Glucose 104 mg/dL (74-99); Potassium 4.1 mmol/L (3.5-5.1); Sodium 138 mmol/L (137-145); Total Bilirubin 0.4 mg/dL (0.2-1.3); Total Protein 7.1 g/dL (6.3-8.2)
--- NOTE | 2018-11-21 19:42 | XR ---
EXAMINATION TYPE: XR KUB DATE OF EXAM: 11/21/2018 COMPARISON: None INDICATION: Abdominal pain TECHNIQUE: Single view abdomen upright view FINDINGS: There are scattered air-fluid levels within loops of bowel. Small bowel loops containing air-fluid le vels are present. Some differential air-fluid levels may be within the midabdomen. Small amount of co lonic bowel gas is present. Psoas margins are poorly visualized. No organomegaly is present. No abnormal calcifications are evident. IMPRESSION: 1. Findings suggestive for partial small bowel obstruction or early complete small bowel obstruction. Follow-up is recommended. 2. Report was called to the emergency room by Dr. Pratt by telephone [phone] hours 11/21/2018
--- NOTE | 2018-11-21 21:00 | CT ---
EXAMINATION TYPE: CT abdomen pelvis w con DATE OF EXAM: 11/21/2018 COMPARISON: None HISTORY: abdominal pain, N/V/D CT DLP: 773.7 mGycm Automated exposure control for dose reduction was used. TECHNIQUE: Helical acquisition of images was performed from the lung bases through the pelvis. CONTRAST: Performed without Oral Contrast and with IV Contrast, patient injected with 100 mL of Isovue 300. FINDINGS: Lung bases are clear. There is no pleural effusion. Heart size is normal. Liver and spleen appear nor mal. There is no pancreatic mass. Gallbladder is somewhat contracted. Bile ducts are not dilated. Wiggins creatic duct appears normal. There is no adrenal mass. Kidneys show satisfactory contrast opacification. There is no hydronephrosi s. Ureters are not dilated. There are multiple mildly dilated loops of small bowel in the lower abdomen. Small bowel is dilated u p to 3.5 cm. There is wall thickening of the terminal ileum which is somewhat dilated. Wall measures up to 8 mm. Appendix is not definitely seen. There is no sign of thickened appendix. There is moderate free fluid in the abdomen and pelvis. There is fluid in the paracolic gutters. Flui d has density of 18 which is relatively low and probably not hemorrhagic. Lumbar vertebra have normal alignment. Disc spaces are fairly normal. Posterior elements are intact. Bony pelvis is intact. Uterus is anteverted. There is no evidence of a pelvic mass. Large bowel is no t dilated. There is no evidence of free air. IMPRESSION: THERE IS WALL THICKENING AND SOME DILATION OF THE DISTAL SMALL BOWEL SUGGESTIVE OF ILEUS OR PARTIAL M ECHANICAL OBSTRUCTION. WALL THICKENING THAT COULD RELATE TO INFLAMMATORY BOWEL DISEASE. MILD TO MODERATE ASCITES FLUID ALSO CONSISTENT WITH INFLAMMATORY PROCESS.
[2018-11-21] MEDS ORDERED: NALOXONE 0.4 MG/ML 1 ML VIAL IV PRN (22:00)
[2018-11-21] MEDS ORDERED: ONDANSETRON 4 MG/2 ML VIAL IVP PRN (22:00)
[2018-11-21] MEDS: KETOROLAC 30 MG/ML 1 ML VIAL IVP PRN (23:11)
[2018-11-21] MEDS: SODIUM CHLORIDE 0.9% 1,000 ML IV SCH (23:13)
[2018-11-22] MEDS: SODIUM CHLORIDE 0.9% 1,000 ML IV SCH ×2 (07:10→15:00)
[2018-11-22] MEDS: KETOROLAC 30 MG/ML 1 ML VIAL IVP PRN (10:25)
[2018-11-22] MEDS ORDERED: methylPREDNISolone SOD SUCCI 125 MG/2 ML VIAL IV STA (14:06)
[2018-11-22] MEDS ORDERED: diphenhydrAMINE 50 MG/ML 1 ML VIAL IVP STA (14:07)
--- NOTE | 2018-11-22 15:28 | P.GSCN ---
History of Present Illness Consult date: 11/22/18 Reason for Consult: Abdominal pain Requesting physician: Colt Mccormick History of present illness: CHIEF COMPLAINT: Abdominal pain HISTORY OF PRESENT ILLNESS: 33-year-old female who presented to the emergency room with a chief complaint of abdominal pain. Patient reports she's been having abdominal pain for the last 2 days. She states the pain is throughout her entire abdomen. She reports nausea and an episode of emesis prior to hospitalization. She also reports some diarrhea. Denies fever or chills. Patient examined at the bedside today with Dr. Cannon. Patient continues to report diffuse abdominal pain. She reports she is passing flatus today and had a bowel movement yesterday. She denies any previous abdominal surgeries. She denies a family history of inflammatory bowel syndrome or other GI related conditions. PAST MEDICAL HISTORY: See list. PAST SURGICAL HISTORY: See list. SOCIAL HISTORY: No illicit drug use. REVIEW OF SYSTEMS: CONSTITUTIONAL: Denies fever or chills. HEENT: Denies blurred vision, vision changes, or eye pain. Denies hemoptysis CARDIOVASCULAR: Denies chest pain or pressure. RESPIRATORY: No shortness of breath. GASTROINTESTINAL: Refer to HPI for pertinent findings HEMATOLOGIC: Denies bleeding disorders. GENITOURINARY: Denies any blood in urine. SKIN: Denies pruitis. Denies rash. PHYSICAL EXAM: VITAL SIGNS: Reviewed. GENERAL: Well-developed in no acute distress. HEENT: No sclera icterus. Extraocular movements grossly intact. Moist buccal mucosa. Head is atraumatic, normocephalic. ABDOMEN: Soft. Mildly distended. Tenderness with palpation. Positive bowel sounds. NEUROLOGIC: Alert and oriented. Cranial nerves II through XII grossly intact. LABORATORY DATA: WBC 12.1. Hemoglobin 14.6. Platelet count 284. IMAGING: CT abdomen and pelvis: There is wall thickening and some dilation of the distal small bowel suggestive of ileus or partial mechanical obstruction. Wall thickening that could relate to inflammatory bowel disease. Trai-di-mcfcctyk ascites fluid also consistent with inflammatory process. ASSESSMENT: 1. Abdominal pain 2. Partial small bowel obstruction versus ileus PLAN: Etiology of patients SBO not completely clear. She has no previous surgical hist ory or family history of GI related conditions. Will begin clear liquid diet as patient is passing flatus and having bowel movements. No surgical intervention recommended at this time. Nurse practitioner note has been reviewed by physician. Signing provider agrees with the documented findings, assessment, and plan of care. Past Medical History Past Medical History: No Reported History Additional Past Medical History / Comment(s): Obstetrical history: 3 Uncomplicated History of Any Multi-Drug Resistant Organisms: None Reported Past Surgical History: Tubal Ligation Past Anesthesia/Blood Transfusion Reactions: No Reported Reaction Past Psychological History: No Psychological Hx Reported Smoking Status: Current every day smoker Past Alcohol Use History: Occasional Past Drug Use History: None Reported - Past Family History Mother Family Medical History: No Reported History Medications and Allergies Home Medications Medication Instructions Recorded Confirmed Type No Known Home Medications 11/21/18 11/21/18 History Allergies Allergy/AdvReac Type Severity Reaction Status Date / Time azithromycin Allergy Unknown Anaphylaxis Verified 11/21/18 18:47 amoxicillin [Amoxicillin] Allergy Anaphylaxis Verified 11/21/18 18:47 Surgical - Exam Vital Signs Temp Pulse Resp BP Pulse Ox 98.2 F 100 16 98/61 99 11/21/18 17:53 11/21/18 17:53 11/21/18 17:53 11/21/18 17:53 11/21/18 17:53 Results - Labs 11/21/18 18:44 11/21/18 18:44 Abnormal Lab Results - Last 24 Hours (Table) 11/21/18 11/21/18 11/21/18 Range/Units 18:30 18:44 18:44 WBC 12.1 H (3.8-10.6) k/uL Neutrophils # 8.6 H (1.3-7.7) k/uL Glucose 104 H (74-99) mg/dL Urine Appearance Cloudy H (Clear) Urine Protein Trace H (Negative) Urine Blood Moderate H (Negative) Urine RBC 19 H (0-5) /hpf Ur Squamous Epith Cells 7 H (0-4) /hpf Urine Bacteria Rare H (None) /hpf Urine Mucus Few H (None) /hpf Diabetes panel 11/21/18 Range/Units 18:44 Sodium 138 (137-145) mmol/L Potassium 4.1 (3.5-5.1) mmol/L Chloride 105 (98-107) mmol/L Carbon Dioxide 24 (22-30) mmol/L BUN 9 (7-17) mg/dL Creatinine 0.65 (0.52-1.04) mg/dL Glucose 104 H (74-99) mg/dL Calcium 9.8 (8.4-10.2) mg/dL AST 16 (14-36) U/L ALT 13 (9-52) U/L Alkaline Phosphatase 52 (38-126) U/L Total Protein 7.1 (6.3-8.2) g/dL Albumin 4.1 (3.5-5.0) g/dL Calcium panel 11/21/18 Range/Units 18:44 Calcium 9.8 (8.4-10.2) mg/dL Albumin 4.1 (3.5-5.0) g/dL Pituitary panel 11/21/18 Range/Units 18:44 Sodium 138 (137-145) mmol/L Potassium 4.1 (3.5-5.1) mmol/L Chloride 105 (98-107) mmol/L Carbon Dioxide 24 (22-30) mmol/L BUN 9 (7-17) mg/dL Creatinine 0.65 (0.52-1.04) mg/dL Glucose 104 H (74-99) mg/dL Calcium 9.8 (8.4-10.2) mg/dL Adrenal panel 11/21/18 Range/Units 18:44 Sodium 138 (137-145) mmol/L Potassium 4.1 (3.5-5.1) mmol/L Chloride 105 (98-107) mmol/L Carbon Dioxide 24 (22-30) mmol/L BUN 9 (7-17) mg/dL Creatinine 0.65 (0.52-1.04) mg/dL Glucose 104 H (74-99) mg/dL Calcium 9.8 (8.4-10.2) mg/dL Total Bilirubin 0.4 (0.2-1.3) mg/dL AST 16 (14-36) U/L ALT 13 (9-52) U/L Alkaline Phosphatase 52 (38-126) U/L Total Protein 7.1 (6.3-8.2) g/dL Albumin 4.1 (3.5-5.0) g/dL
[2018-11-22] MEDS ORDERED: IBUPROFEN 600 MG TAB PO PRN (18:20)
--- NOTE | 2018-11-22 23:38 | P.HPIM ---
History of Present Illness H&P Date: 11/22/18 Chief Complaint: abdominal pain Alta Mejia is a 33 yo F with no significant PMH who presented to the ED complaining of 2 day history of severe abdominal pain. She states that she began to notice an intermittent sharp cramp lasting a few seconds over the past 2 days. Pt notes that prior to admission it was more severe and she vomited 2 or 3 times. She also complains of watery diarrhea. She denies fevers, chills, or myalgias. She denies sick contacts. She denies any prior history of abdominal surgeries. She denies rectal bleeding or bloody stools. In the ED, vitals st able, WBC 12.1, CT shows wall thickening of distal small bowel. Review of Systems All systems: negative Constitutional: Denies chills, Denies fever Eyes: denies blurred vision, denies pain Ears, nose, mouth and throat: Denies headache, Denies sore throat Cardiovascular: Denies chest pain, Denies shortness of breath Respiratory: Denies cough Gastrointestinal: Reports abdominal pain, Reports diarrhea, Reports nausea, Reports vomiting, Denies melena Genitourinary: Denies dysuria, Denies hematuria Musculoskeletal: Denies myalgias Integumentary: Denies pruritus, Denies rash Neurological: Denies numbness, Denies weakness Psychiatric: Denies anxiety, Denies depression Endocrine: Denies fatigue, Denies weight change Past Medical History Past Medical History: No Reported History Additional Past Medical History / Comment(s): Obstetrical history: 3 Uncomplicated History of Any Multi-Drug Resistant Organisms: None Reported Past Surgical History: Tubal Ligation Past Anesthesia/Blood Transfusion Reactions: No Reported Reaction Past Psychological History: No Psychological Hx Reported Smoking Status: Current every day smoker Past Alcohol Use History: Occasional Past Drug Use History: None Reported - Past Family History Mother Family Medical History: No Reported History Medications and Allergies Home Medications Medication Instructions Recorded Confirmed Type No Known Home Medications 11/21/18 11/21/18 History Allergies Allergy/AdvReac Type Severity Reaction Status Date / Time azithromycin Allergy Unknown Anaphylaxis Verified 11/21/18 18:47 amoxicillin [Amoxicillin] Allergy Anaphylaxis Verified 11/21/18 18:47 ketorolac [From Toradol] Allergy Anaphylaxis Verified 11/22/18 18:18 Physical Exam Vitals: Vital Signs Temp Pulse Resp BP Pulse Ox 11/22/18 19:37 98.3 F 78 18 113/78 99 11/22/18 14:58 98.6 F 64 16 96/51 99 11/22/18 07:00 98.5 F 76 16 100/66 97 11/22/18 01:15 98.4 F 79 18 108/71 99 Intake and Output 11/22/18 11/22/18 11/23/18 14:59 22:59 06:59 Intake Total 720 Balance 720 Intake: Intake, IV Titration 720 Amount Sodium Chloride 0.9% 1, 720 000 ml @ 120 mls/hr IV . Q8H20M JOVAN Rx#:[id number] Other: Voiding Method Toilet # Voids 2 General: well nourished, well developed, NAD. Vitals reviewed Eyes: PERRL, EOMI, conjunctiva normal HENT: normocephalic, mucus membranes moist Neck: supple, no JVD Lungs: normal respiratory effort, no wheezes or rales CV: Regular rate and rhythm, no murmur. Peripheral pulses 2+ Abdomen: soft, nondistended, no organomegaly. Generalized tenderness to palpation Lymph: no cervical or axillary LAD Skin: warm and dry. Neuro: A&Ox3, normal mood and affect Results CBC & Chem 7: 11/21/18 18:44 11/21/18 18:44 Thrombosis Risk Factor Assmnt - Choose All That Apply Any of the Below Risk Factors Present?: No Other Risk Factors: No Other congenital or acquired thrombophilia - If yes, enter type in comment: No Thrombosis Risk Factor Assessment Level: Very Low Risk Assessment and Plan (1) Abdominal pain Current Visit: Yes Status: Acute Code(s): R10.9 - UNSPECIFIED ABDOMINAL PAIN SNOMED Code(s): 28903770 (2) Small bowel obstruction Current Visit: Yes Status: Acute Code(s): K56.609 - UNSP INTESTNL OBST, UNSP TO PARTIAL VERSUS COMPLETE OBST SNOMED Code(s): 197536254 Plan: 1. Abdominal pain. Secondary to partial SBO vs recent gastroenteritis. IBD remote consideration. Surgery consult. Clear liquid diet. Pain control
[2018-11-23] MEDS: SODIUM CHLORIDE 0.9% 1,000 ML IV SCH ×2 (01:00→08:28)
[2018-11-23 03:26] VITALS: RESP 16
[2018-11-23 07:14] VITALS: BP 107/65; PULSE 57; TEMP 98.2
--- NOTE | 2018-11-23 12:05 | P.PN ---
Progress Note - Text Progress Note Date: 11/23/18 The patient states she feels well. She denies any nausea. Her abdominal pain is improved. On exam her vital signs are stable. Her abdomen soft. Patient's partial small bowel obstruction is resolved. She'll be discharged home today. She'll follow-up in one week.
--- NOTE | 2018-11-23 16:49 | P.DS ---
Providers Date of admission: 11/21/18 21:30 Expected date of discharge: 11/23/18 Attending physician: Paco Lindsay MD Consults: 11/21/18 21:29 Consult Physician Urgent Consulting Provider: Travon Cannon Consult Reason/Comments: Abdominal pain, partial small bowel obstruction/ileus. Do you want consulting provider notified?: Yes Primary care physician: Xiao Pittman Lds Hospital Course: Final Diagnoses: 1) Abdominal pain secondary to partial SBO versus recent gastroenteritis. IBD remote consideration. Current Visit: Yes Status: Acute Code(s): R10.9 - UNSPECIFIED ABDOMINAL PAIN SNOMED Code(s): 77487222 (2) Small bowel obstruction Current Visit: Yes Status: Acute Code(s): K56.609 - UNSP INTESTNL OBST, UNSP TO PARTIAL VERSUS COMPLETE OBST SNOMED Code(s): 310019942 Hospital course:Alta Mejia is a 33 yo F with no significant PMH who presented to the ED complaining of 2 day history of severe abdominal pain. She states that she began to notice an intermittent sharp cramp lasting a few seconds over the past 2 days. Pt notes that prior to admission it was more severe and she vomited 2 or 3 times. She also complains of watery diarrhea. She denies fevers, chills, or myalgias. She denies sick contacts. She denies any prior history of abdominal surgeries. She denies rectal bleeding or bloody stools. In the ED, vitals stable, WBC 12.1, CT shows wall thickening of distal small bowel. Evaluated by surgery. Tolerated clears, soft diet with no nausea, no vomiting. Positive bowel movement last night. PSBO resolved. Minimal tenderness. Clear by surgery for discharge. Significant clinical improvement. Patient is being discharged home in a stable condition with her prognosis. General: well nourished, well developed, NAD. Lungs: normal respiratory effort, no wheezes or rales CV: Regular rate and rhythm, no murmur. Peripheral pulses 2+ Abdomen: soft, nondistended, no organomegaly. Minimal diffuse tenderness to palpation Neuro: A&Ox3, normal mood and affect, no focal deficits The impression and plan of care has been dictated as directed. : I performed a history and examination of this patient, discussed the same with the dictator. I agree with the dictator's note ,documented as a scribe. Any additional findings or plans will be noted. Patient Condition at Discharge: Stable Plan - Discharge Summary Discharge Rx Participant: Yes New Discharge Prescriptions: New Ibuprofen [Motrin] 600 mg PO QID PRN #12 tab PRN Reason: Pain Omeprazole [PriLOSEC] 20 mg PO AC-BID #14 cap Discharge Medication List Ibuprofen [Motrin] 600 mg PO QID PRN #12 tab 11/23/18 [Rx] Omeprazole [PriLOSEC] 20 mg PO AC-BID #14 cap 11/23/18 [Rx] Follow up Appointment(s)/Referral(s): Vamsi Lincoln MD [STAFF PHYSICIAN] - 11/27/18 2:50 pm Travon Cannon MD [STAFF PHYSICIAN] - 1 Week Patient Instructions/Handouts: Bowel Obstruction (DC) Discharge Disposition: HOME SELF-CARE
== END 2018-11-23 14:18 | disposition home or self-care (01) | DRG 389 ==
LOC: EC 17:50 → 4SSUR 21:30
PROVIDERS: ADMIT Family Medicine; ATTEND Family Medicine
DX: K56.600 Partial intestinal obstruction, unspecified as to cause (principal); R18.8 Other ascites; F17.200 Nicotine dependence, unspecified, uncomplicated; K52.9 Noninfective gastroenteritis and colitis, unspecified; Z98.51 Tubal ligation status; K56.7 Ileus, unspecified; Z88.2 Allergy status to sulfonamides
CPT/HCPCS: 36415; 74018; 74177; 80053; 81001; 81025; 82150; 83690; 85025; 96361; 96372; 96374; 96375; 99285

== ENCOUNTER 2018-11-27 17:39 | Inpatient (IN) | payer OTHER ==
[2018-11-27] MEDS ORDERED: SODIUM CHLORIDE 0.9% 1,000 ML IV STA (20:10)
[2018-11-27] MEDS ORDERED: MORPHINE SULFATE 4 MG/ML SYRINGE IV STA (20:10)
--- NOTE | 2018-11-27 20:46 | XR ---
EXAMINATION TYPE: XR KUB DATE OF EXAM: 11/27/2018 COMPARISON: 11/21/2018 HISTORY: Abdominal pain TECHNIQUE: 2 views upright FINDINGS: There is no sign of intestinal obstruction or pneumoperitoneum. Fecal pattern is normal. Madelyn ng bases are clear. There are no pathologic calcifications. Bony structures are intact. There is no s ign of a mass. IMPRESSION: Nonacute abdomen. No adverse change.
[2018-11-27 21:30] LABS: Basophils % (A) 1 %; Eosinophils # (A) 0.5 k/uL (0-0.7); Eosinophils % (A) 6 %; HCT 38.2 % (34.0-46.0); HGB 12.5 gm/dL (11.4-16.0); Lymphocytes # (A) 2.5 k/uL (1.0-4.8); Lymphocytes % (A) 32 %; MCH 28.6 pg (25.0-35.0); MCHC 32.7 g/dL (31.0-37.0); MCV 87.5 fL (80.0-100.0); Mean Platelet Volume 5.9; Monocytes # (A) 0.4 k/uL (0-1.0); Monocytes % (A) 5 %; Neutrophils # (A) 4.2 k/uL (1.3-7.7); Neutrophils % (A) 54 %; Platelet Count 373 k/uL (150-450); RBC 4.37 m/uL (3.80-5.40); RDW 13.8 % (11.5-15.5); WBC 7.7 k/uL (3.8-10.6)
[2018-11-27 21:41] LABS: ALT 18 U/L (9-52); AST 16 U/L (14-36); African American GFR (CKD) >90 (>60 ml/min/1.73 sqM); Albumin 4.1 g/dL (3.5-5.0); Alkaline Phosphatase 50 U/L (38-126); Anion Gap 7 mmol/L; Blood Urea Nitrogen 6 mg/dL (7-17); Calcium 9.7 mg/dL (8.4-10.2); Carbon Dioxide 28 mmol/L (22-30); Chloride 107 mmol/L (98-107); Glucose 85 mg/dL (74-99); Sodium 142 mmol/L (137-145); Total Bilirubin 0.3 mg/dL (0.2-1.3); Total Protein 7.2 g/dL (6.3-8.2)
[2018-11-27 22:02] LABS: Appearance,Urine Clear (Clear); Bacteria,Urine Occasional /hpf; Bilirubin,Urine Negative (Negative); Blood,Urine Small (Negative); Color,Urine Light Yellow; Glucose,Urine (UA) Negative (Negative); Ketones,Urine Negative (Negative); Leukocyte Esterase,Urine Negative (Negative); Mucus,Urine Rare /hpf; Nitrite,Urine Negative (Negative); Protein,Urine Negative (Negative); RBC,Urine 4 /hpf (0-5); Specific Gravity,Urine 1.004 (1.001-1.035); Squamous Epithelial Cell,Urine 2 /hpf (0-4); Urobilinogen,Urine <2.0 mg/dL (<2.0); WBC,Urine 1 /hpf (0-5)
--- NOTE | 2018-11-27 22:08 | ED ---
General Adult HPI - General Chief complaint: Abdominal Pain Stated complaint: bowel obstruction Time Seen by Provider: 11/27/18 20:05 Source: patient, RN notes reviewed, old records reviewed Mode of arrival: ambulatory Limitations: no limitations - History of Present Illness Initial comments: 33-year-old female patient presents to ED complaining of abdominal pain. Patient was that she was admitted on 11/21 for possible small bulb suction. Patient reports that since then she has had persistent suprapubic abdominal pain. Patient reports this pain is the same as before. Patient fourth that she is still passing flatus and stool. Patient also reports that she is having some small amount of bloody stools which has been present since her hospital adm ission. States that she saw her primary care doctor today who recommended being admitted to hospital for GI evaluation. Systemic: Pt denies fatigue, fever/chills, rash. Pt denies weakness, night swe ats, weight loss. Neuro: Pt denies headache, visual disturbances, syncope or pre-syncope. HEENT: Pt denies ocular discharge or irritation, otalgia, rhinorrhea, pharyngitis or notable lymphadenopathy. Cardiopulmonary: Pt denies chest pain, SOB, heart palpitations, dyspnea on exertion. Abdominal/GI: Pt denies n/v/d. : Pt denies dysuria, burning w/ urination, frequency/urgency. Denies new onset urinary or bowel incontinence. MSK: Pt denies myalgia, loss of strength or function in extremities. Neuro: Pt denies new onset weakness, paresthesias. - Related Data Previous Rx's Medication Instructions Recorded Ibuprofen [Motrin] 600 mg PO QID PRN #12 tab 11/23/18 Allergies Allergy/AdvReac Type Severity Reaction Status Date / Time azithromycin Allergy Unknown Anaphylaxis Verified 11/27/18 20:02 amoxicillin [Amoxicillin] Allergy Anaphylaxis Verified 11/27/18 20:02 ketorolac [From Toradol] Allergy Anaphylaxis Verified 11/27/18 20:02 Review of Systems ROS Statement: Those systems with pertinent positive or pertinent negative responses have been documented in the HPI. ROS Other: All systems not noted in ROS Statement are negative. Past Medical History Past Medical History: No Reported History Additional Past Medical History / Comment(s): Obstetrical history: 3 Uncomplicated, bowel obstruction History of Any Multi-Drug Resistant Organisms: None Reported Past Surgical History: Tubal Ligation Past Anesthesia/Blood Transfusion Reactions: No Reported Reaction Past Psychological History: No Psychological Hx Reported Smoking Status: Current every day smoker Past Alcohol Use History: Occasional Past Drug Use History: None Reported - Past Family History Mother Family Medical History: No Reported History General Exam - General Exam Comments Initial Comments: Constitutional: NAD, AOX3, Pt has pleasant affect. HEENT: NC/AT, trachea midline, neck supple, no lymphadenopathy. Posterior pharynx non erythematous, without exudates. External ears appear normal, without discharge. Mucous membranes moist. Eyes PERRLA, EOM intact. There is no scleral icterus. No pallor noted. Cardiopulmonary: RRR, no murmurs, rubs or gallops, no JVD noted. Lungs CTAB in anterior and posterior kumar. No peripheral edema. Abdominal exam: Abdomen soft mild or distended. Mildly tender to palpation suprapubic region. Bowel sounds active in LLQ. No hepatosplenomegaly. No ecchymosis Neuro: CN II-XII grossly intact. No nuchal rigidity. No raccon eyes, no maldonado sign, no hemotympanum. No cervical spinal tenderness. MSK: No posterior calf tenderness bilaterally, homans sign negative bilaterally. Posterior tibialis and radial pulse +2 bilaterally. Sensation intact in upper and lower extremities. Full active ROM in upper and lower extremities, 5/5 stregnth. Limitations: no limitations Course Vital Signs 11/27/18 11/27/18 11/27/18 19:33 21:14 22:44 Temperature 98.3 F 98.7 F Pulse Rate 80 65 Respiratory 20 16 16 Rate Blood Pressure 125/91 131/93 O2 Sat by Pulse 99 100 Oximetry Medical Decision Making - Medical Decision Making Final feel patient doesn't see chief complaint superior abdominal pain, small amount of bright red blood when wiping after a bowel movement. Patient reports has been ongoing for approximately one week. Patient did have recent hospitalization for possible small bowel traction. Patient reports that the symptoms have been ongoing since the hospitalization. Since that she seen by her primary care provider today who recommended admission for GI consult. Vital signs stable, afebrile. Physical exam displayed mild suprapubic tenderness. Laboratory investigations were noncompressive. Patient declined fecal occult blood. Patient admitted for GI evaluation. KUB did not display acute process. Case discussed with Dr. Terrell. - Lab Data Result diagrams: 11/27/18:05 11/27/18 21:05 Lab Results 11/27/18 11/27/18 11/27/18 Range/Units 21:00 21:00 21:05 WBC 7.7 (3.8-10.6) k/uL RBC 4.37 (3.80-5.40) m/uL Hgb 12.5 (11.4-16.0) gm/dL Hct 38.2 (34.0-46.0) % MCV 87.5 (80.0-100.0) fL MCH 28.6 (25.0-35.0) pg MCHC 32.7 (31.0-37.0) g/dL RDW 13.8 (11.5-15.5) % Plt Count 373 (150-450) k/uL Neutrophils % 54 % Lymphocytes % 32 % Monocytes % 5 % Eosinophils % 6 % Basophils % 1 % Neutrophils # 4.2 (1.3-7.7) k/uL Lymphocytes # 2.5 (1.0-4.8) k/uL Monocytes # 0.4 (0-1.0) k/uL Eosinophils # 0.5 (0-0.7) k/uL Basophils # 0.0 (0-0.2) k/uL Sodium (137-145) mmol/L Potassium (3.5-5.1) mmol/L Chloride (98-107) mmol/L Carbon Dioxide (22-30) mmol/L Anion Gap mmol/L BUN (7-17) mg/dL Creatinine (0.52-1.04) mg/dL Est GFR (CKD-EPI)AfAm (>60 ml/min/1.73 sqM) Est GFR (CKD-EPI)NonAf (>60 ml/min/1.73 sqM) Glucose (74-99) mg/dL Plasma Lactic Acid Bang (0.7-2.0) mmol/L Calcium (8.4-10.2) mg/dL Total Bilirubin (0.2-1.3) mg/dL AST (14-36) U/L ALT (9-52) U/L Alkaline Phosphatase (38-126) U/L Total Protein (6.3-8.2) g/dL Albumin (3.5-5.0) g/dL Lipase (23-300) U/L Urine Color Light Yellow Urine Appearance Clear (Clear) Urine pH 7.0 (5.0-8.0) Ur Specific [place] 1.004 (1.001-1.035) Urine Protein Negative (Negative) Urine Glucose (UA) Negative (Negative) Urine Ketones Negative (Negative) Urine Blood Small H (Negative) Urine Nitrite Negative (Negative) Urine Bilirubin Negative (Negative) Urine Urobilinogen <2.0 (<2.0) mg/dL Ur Leukocyte Esterase Negative (Negative) Urine RBC 4 (0-5) /hpf Urine WBC 1 (0-5) /hpf Ur Squamous Epith Cells 2 (0-4) /hpf Urine Bacteria Occasional H (None) /hpf Urine Mucus Rare H (None) /hpf Urine HCG, Qual Not Detected (Not Detectd) 11/27/18 11/27/18 Range/Units 21:05 21:05 WBC (3.8-10.6) k/uL RBC (3.80-5.40) m/uL Hgb (11.4-16.0) gm/dL Hct (34.0-46.0) % MCV (80.0-100.0) fL MCH (25.0-35.0) pg MCHC (31.0-37.0) g/dL RDW (11.5-15.5) % Plt Count (150-450) k/uL Neutrophils % % Lymphocytes % % Monocytes % % Eosinophils % % Basophils % % Neutrophils # (1.3-7.7) k/uL Lymphocytes # (1.0-4.8) k/uL Monocytes # (0-1.0) k/uL Eosinophils # (0-0.7) k/uL Basophils # (0-0.2) k/uL Sodium 142 (137-145) mmol/L Potassium 4.0 (3.5-5.1) mmol/L Chloride 107 (98-107) mmol/L Carbon Dioxide 28 (22-30) mmol/L Anion Gap 7 mmol/L BUN 6 L (7-17) mg/dL Creatinine 0.65 (0.52-1.04) mg/dL Est GFR (CKD-EPI)AfAm >90 (>60 ml/min/1.73 sqM) Est GFR (CKD-EPI)NonAf >90 (>60 ml/min/1.73 sqM) Glucose 85 (74-99) mg/dL Plasma Lactic Acid Bang 0.9 (0.7-2.0) mmol/L Calcium 9.7 (8.4-10.2) mg/dL Total Bilirubin 0.3 (0.2-1.3) mg/dL AST 16 (14-36) U/L ALT 18 (9-52) U/L Alkaline Phosphatase 50 (38-126) U/L Total Protein 7.2 (6.3-8.2) g/dL Albumin 4.1 (3.5-5.0) g/dL Lipase 85 (23-300) U/L Urine Color Urine Appearance (Clear) Urine pH (5.0-8.0) Ur Specific [place] (1.001-1.035) Urine Protein (Negative) Urine Glucose (UA) (Negative) Urine Ketones (Negative) Urine Blood (Negative) Urine Nitrite (Negative) Urine Bilirubin (Negative) Urine Urobilinogen (<2.0) mg/dL Ur Leukocyte Esterase (Negative) Urine RBC (0-5) /hpf Urine WBC (0-5) /hpf Ur Squamous Epith Cells (0-4) /hpf Urine Bacteria (None) /hpf Urine Mucus (None) /hpf Urine HCG, Qual (Not Detectd) Disposition Clinical Impression: Abdominal pain Disposition: ADMITTED IP TO THIS HOSP Condition: Serious Is patient prescribed a controlled substance at d/c from ED?: No Referrals: Vamsi Lincoln MD [Primary Care Provider] - 1-2 days
[2018-11-28] MEDS ORDERED: ACETAMINOPHEN TAB 325 MG TAB PO PRN (00:15)
[2018-11-28] MEDS ORDERED: NALOXONE 0.4 MG/ML 1 ML VIAL IV PRN (00:15)
[2018-11-28] MEDS: SODIUM CHLORIDE 0.9% 1,000 ML IV SCH ×3 (08:33→21:06)
[2018-11-28] MEDS: PANTOPRAZOLE 40 MG/10 ML VIAL IV SCH (08:38)
[2018-11-28] MEDS: MORPHINE SULFATE 4 MG/ML SYRINGE IV PRN ×3 (08:39→21:05)
[2018-11-28] MEDS ORDERED: IOPAMIDOL CONTRAST (ORAL USE) VIAL PO PRN (10:23)
--- NOTE | 2018-11-28 12:07 | PN ---
PROGRESS NOTE CHIEF COMPLAINT: Abdominal pain with hematochezia. HISTORY OF PRESENT ILLNESS: This lady has been stable and she waits being assigned to a bed. She has been referred to Gastroenterology. PHYSICAL EXAM: Abdomen is still is somewhat tender and there are no definite masses or visceromegaly. Bowel sounds are present. IMPRESSION: Abdominal pain and hematochezia. PLAN: Intravenous fluids and continue to wait for Gastroenterology evaluation. In the meantime, I will order a stool for occult blood. MMODL / IJN: [id number] /
--- NOTE | 2018-11-28 12:37 | HP ---
HISTORY AND PHYSICAL CHIEF COMPLAINT: Abdominal pain and hematochezia. HISTORY OF PRESENT ILLNESS: This is the first known admission for this 33-year-old female. She has a history of abdominal pain for which she was admitted last week. She was told she had a bowel obstruction. Nothing further was done about this. She stayed home and came to the office on the day of admission complaining of persistent pain and distention, but she was not vomiting and she was passing gas. Films in the office failed to demonstrate any air-fluid levels or dilated loops of bowel. She was sent to the emergency room for further evaluation and urgent laboratory studies and it was determined that she would be admitted. She is giving a history of passing bright red blood. She has never had any bowel problems in the past including irritable bowel syndrome, ulcerative colitis, Crohn's, or any other GI pathology. She has had no fever or chills. REVIEW OF SYSTEMS: Otherwise normal. She has had no headaches, change in vision or hearing, chest pain, shortness of breath, heart disease, hypertension, murmurs, rheumatic fever, abdominal pain, hematemesis, ulcer disease, gallbladder disease, pancreatitis, melena, diverticulosis, diverticulitis, renal failure, renal disease, hematuria, dysuria, frequency, urgency, diabetes, etc. PAST MEDICAL HISTORY: Reveals that she cannot take Prilosec or penicillin both which cause rashes. Penicillin gives her shortness of breath. She is not on any medication. She has had 2 pregnancies and 2 deliveries. She has had a tubal ligation. She does smoke, but she does not drink. PHYSICAL EXAMINATION: Blood pressure 126/82, pulse 78, respirations 16, temperature 98.2. In general she appeared to be slightly pale and she was uncomfortable. Skin was dry, lymph nodes are not enlarged. Head, ears, eyes, nose, mouth, and throat were normal neck veins are not distended. Thyroid is not enlarged. Chest is clear. Cardiac exam is normal. No murmurs or extra sounds. The abdomen is slightly protuberant, soft, and she had generalized tenderness to palpation without any masses or visceromegaly. Bowel sounds were heard. Extremities are normal and neurologically she is intact. She is admitted to the hospital with diagnosis #1: Abdominal pain with hematochezia. PLAN: 1. Bed rest. 2. IV fluids. 3. GI consult. MMODL / IJN: [id number] /
--- NOTE | 2018-11-28 12:44 | CT ---
EXAMINATION TYPE: CT abdomen pelvis w con DATE OF EXAM: 11/28/2018 HISTORY: LUQ pain, bloating CT DLP: 761.8mGycm Automated Exposure Control for Dose Reduction was Utilized. CONTRAST: CT scan of the abdomen and pelvis is performed with oral and with IV Contrast, patient injected with 100 mL of Isovue 300. COMPARISON: CT abdomen and pelvis one week ago. FINDINGS: LUNG BASES: No significant abnormality is appreciated. LIVER/GB: No significant abnormality is appreciated. PANCREAS: No significant abnormality is seen. SPLEEN: No significant abnormality is seen. ADRENALS: No significant abnormality is seen. KIDNEYS: Symmetric cortical medullary uptake and excretion without hydronephrosis seen bilaterally. BOWEL: Oral contrast reaches level of the splenic flexure. No suspicious small or large bowel dilatat ion. Normal contrast-filled appendix. Slightly redundant sigmoid colon. UTERUS/ADNEXA: Anteverted uterus projects to the right of midline. Interval improvement in pelvic flu id. Left ovary upper limits of normal size echo image 57. No enlarged right ovary or adnexal mass w[place] ntified. LYMPH NODES: No greater than 1cm abdominal or pelvic lymph nodes are appreciated. OSSEOUS STRUCTURES: Transitional-type L6 vertebra is sacralized on the left it is redemonstrated. OTHER: No significant additional abnormality is seen. IMPRESSION: Interval resolution of pelvic ascites and partial small bowel obstruction. No new suspici ous acute findings are evident.
[2018-11-28 14:27] VITALS: BMI 23.3
[2018-11-29] MEDS: MORPHINE SULFATE 4 MG/ML SYRINGE IV PRN ×4 (02:34→21:31)
[2018-11-29] MEDS: SODIUM CHLORIDE 0.9% 1,000 ML IV SCH ×2 (08:01→17:05)
[2018-11-29 08:03] LABS: Basophils % (A) 0 %; Eosinophils # (A) 0.3 k/uL (0-0.7); Eosinophils % (A) 4 %; HCT 37.7 % (34.0-46.0); HGB 11.8 gm/dL (11.4-16.0); Lymphocytes # (A) 1.8 k/uL (1.0-4.8); Lymphocytes % (A) 25 %; MCH 27.4 pg (25.0-35.0); MCHC 31.3 g/dL (31.0-37.0); MCV 87.5 fL (80.0-100.0); Mean Platelet Volume 6.3; Monocytes # (A) 0.3 k/uL (0-1.0); Monocytes % (A) 5 %; Neutrophils # (A) 4.6 k/uL (1.3-7.7); Neutrophils % (A) 65 %; Platelet Count 297 k/uL (150-450); RBC 4.32 m/uL (3.80-5.40); RDW 13.8 % (11.5-15.5); WBC 7.1 k/uL (3.8-10.6)
[2018-11-29 08:16] LABS: ALT 16 U/L (9-52); AST 15 U/L (14-36); African American GFR (CKD) >90 (>60 ml/min/1.73 sqM); Albumin 3.4 g/dL (3.5-5.0); Alkaline Phosphatase 44 U/L (38-126); Anion Gap 6 mmol/L; Blood Urea Nitrogen 7 mg/dL (7-17); Carbon Dioxide 26 mmol/L (22-30); Chloride 107 mmol/L (98-107); Glucose 76 mg/dL (74-99); Sodium 139 mmol/L (137-145); Total Bilirubin 0.5 mg/dL (0.2-1.3)
[2018-11-29] MEDS: PANTOPRAZOLE 40 MG/10 ML VIAL IV SCH (08:19)
--- NOTE | 2018-11-29 15:17 | PN ---
PROGRESS NOTE CHIEF COMPLAINT: Abdominal pain, rectal bleeding. HISTORY OF PRESENT ILLNESS: This lady is still not doing well. She still has lower abdominal pain. A CT scan demonstrated some resolution of pelvic fluid that was seen before and what was thought to be a small bowel obstruction is also not seen on this study. She is not having any vomiting. She states she is still passing bright red blood. PHYSICAL EXAMINATION: Chest is clear. Flanks are nontender. The cardiac exam is normal and the abdomen is slightly protuberant and there are no masses or visceromegaly. She is tender in the lower half of the abdomen. Extremities are normal. Neurologically, she is intact. IMPRESSION: Lower abdominal pain of with hematochezia. PLAN: Continue to follow vital signs and blood work and await recommendations of Gastroenterology. MMODL / IJN: [id number] /
[2018-11-29] MEDS: DICYCLOMINE 20 MG TAB PO SCH ×2 (17:28→21:32)
--- NOTE | 2018-11-30 06:36 | P.CONS ---
History of Present Illness - Reason for Consult Consult date: 11/29/18 Abdominal pain Requesting physician: Vamsi Lincoln - Chief Complaint Abdominal pain - History of Present Illness 33-year-old female who presents to the hospital for evaluation of abdominal pain and blood per rectum. The patient was recently in the emergency department with imaging findings suggestive of a partial small bowel obstruction and treated for enteritis. She presents back to the hospital with complaints of continued abdominal pain and blood per rectum. She reports that the pain is in the lower abdomen predominantly on the right side of her abdomen and described as sharp, cramping and constant in quality. She states that the pain came on all of a sudden and is been constant since that time waxing and waning in intensity. She denies any sick contacts, antibiotic use, recent medications or unusual food or travel prior to her symptoms. If no relieving or exacerbating factors. She states no increase in frequency of bowel movements currently having 2 formed bowel movements a day but has noticed some blood in the stool. No family history of inflammatory bowel disease or colon cancer reported. Prior surgical history significant for tubal ligation. On current admission repeat computed tomography scan of the abdomen showed resolution of previously seen evidence of partial obstruction and a ascites. Laboratory evaluation significant for WBC 7.1, hemoglobin 11.8, platelet count 297,000, total bilirubin 0.5, alkaline phosphatase 44, AST 15 and ALTs 16. Review of Systems REVIEW OF SYSTEMS: CONSTITUTIONAL: Denies any fevers, chills, weight change or fatigue. CARDIOVASCULAR: Denies any chest pain, palpitations high or low blood pressures RESPIRATORY: Denies any shortness of breath, hemoptysis or cough. GENITOURINARY: No dysuria or hematuria. MUSCULOSKELETAL: No weakness reported. SKIN: Denies any new rashes or lesions, jaundice or pallor. PSYCHIATRIC: Denies any depression or anxiety. NEUROLOGY: Denies headache, denies any new focal deficits. EARS/NOSE/THROAT: No recent hearing change, congestion, nasal discharge or sore throat. EYES: No pain in eyes, discharge or change in vision. GASTROINTESTINAL: As per HPI. Past Medical History Past Medical History: No Reported History Additional Past Medical History / Comment(s): Pt recently admitted to [facility] on 11/21/18 with abdominal pain 2ndary to partial SBO vs recent gastroenteritis. History of Any Multi-Drug Resistant Organisms: None Reported Past Surgical History: Tubal Ligation Past Anesthesia/Blood Transfusion Reactions: No Reported Reaction Smoking Status: Light tobacco smoker - Past Family History Mother Family Medical History: Deep Vein Thrombosis (DVT), Osteoarthritis (OA), Pulmonary Embolus Father Family Medical History: Coronary Artery Disease (CAD) Additional Family Medical History / Comment(s): Father has cardiac stents. Medications and Allergies Home Medications Medication Instructions Recorded Confirmed Type Ibuprofen [Motrin] 600 mg PO QID PRN #12 tab 11/23/18 11/27/18 Rx Allergies Allergy/AdvReac Type Severity Reaction Status Date / Time azithromycin Allergy Unknown Anaphylaxis Verified 11/27/18 20:02 amoxicillin [Amoxicillin] Allergy Anaphylaxis Verified 11/27/18 20:02 ketorolac [From Toradol] Allergy Anaphylaxis Verified 11/27/18 20:02 Physical Exam Vitals: Vital Signs Temp Pulse Pulse Resp BP Pulse Ox 11/29/18 14:24 97.6 F 57 L 16 105/59 98 11/29/18 07:00 98.6 F 55 L 16 114/63 98 11/29/18 01:31 99.2 F 63 18 123/74 99 11/28/18 19:01 98.0 F 54 L 18 120/75 99 Intake and Output 11/29/18 11/29/18 11/29/18 06:59 14:59 22:59 Other: Voiding Method Toilet # Voids 2 On physical examination, patient appears comfortable in no apparent distress. HEAD: Normocephalic, atraumatic. EYES: No scleral icterus. No conjunctival injection. MOUTH: No lesions, tongue midline. NECK: Trachea midline, no gross abnormalities. CHEST: Clear to auscultation with no wheezing or rhonchi appreciated. HEART: Regular rate and rhythm, S1-S2 appreciated. ABDOMEN: Soft, mildly tender to palpation. Bowel sounds are positive. No organomegaly. No guarding or rigidity. EXTREMITIES: No pedal edema. SKIN: No rashes, no jaundice. NEUROLOGIC: Alert and oriented x3. No focal deficits. Results CBC & Chem 7: 11/29/18 07:00 11/29/18 07:00 Labs: Abnormal Lab Results - Last 24 Hours (Table) 11/29/18 Range/Units 07:00 Total Protein 6.0 L (6.3-8.2) g/dL Albumin 3.4 L (3.5-5.0) g/dL CT scan - abdomen: report reviewed (Computed tomography scan of the abdomen showing resolution of partial small bowel obstruction and ascites seen On prior evaluation) Assessment and Plan (1) Abdominal pain Narrative/Plan: 33-year-old female with reports of lower abdominal pain, with blood per rectum noted with no increase in frequency of her bowel movements over 1 week's duration. She denies any chronicity of her symptoms. Computed tomography scan on initial ED visit was suggestive of partial small bowel obstruction, however repeat computed tomography scan on this admission showed resolution of obstruction with no ascites noted. Hemoglobin has remained stable at 11.8 from 12.1. No family history of IBD or colon cancer. Unclear if symptoms are secondary to gastroenteritis, functional bowel disease, or other etiology. Current Visit: Yes Status: Acute Code(s): R10.9 - UNSPECIFIED ABDOMINAL PAIN SNOMED Code(s): 05140397 (2) Blood per rectum Current Visit: Yes Status: Acute Code(s): K62.5 - HEMORRHAGE OF ANUS AND RECTUM SNOMED Code(s): 33133137 (3) Small bowel obstruction Current Visit: No Status: Acute Code(s): K56.609 - UNSP INTESTNL OBST, UNSP TO PARTIAL VERSUS COMPLETE OBST SNOMED Code(s): 479133753 Plan: Supportive care Diet as tolerated ESR and CRP ordered Dicyclomine 20 mg 4 times a day Continue to monitor CMP, CBC Computed tomography scan reviewed Abdominal x-ray ordered for 11/30/18 Further recommendations pending findings, labs and imaging as well as clinical course Thank you for allowing us to participate in the care of the patient we will continue to follow
[2018-11-30] MEDS: MORPHINE SULFATE 4 MG/ML SYRINGE IV PRN (07:40)
[2018-11-30 08:21] VITALS: RESP 16
[2018-11-30] MEDS: DICYCLOMINE 20 MG TAB PO SCH ×2 (09:16→13:23)
[2018-11-30] MEDS: PANTOPRAZOLE 40 MG/10 ML VIAL IV SCH (09:16)
--- NOTE | 2018-11-30 11:24 | XR ---
EXAMINATION TYPE: XR abdomen 1V DATE OF EXAM: 11/30/2018 11:07 AM CLINICAL HISTORY: Lower abdominal pain and blood per rectum. TECHNIQUE: Two Upright KUB images of the abdomen are obtained. COMPARISON: Abdominal x-ray [address] abdomen and pelvis 2 days ago.. FINDINGS: Some paucity of small bowel gas. Gas is seen in nondistended stomach. Gas and contrast mate rial from recent CT is seen in non-distended colon. Gas is seen in nondistended rectum. There is no p neumoperitoneum or abnormal calcification appreciated. The lung bases remain clear and the osseous st ructures are intact. IMPRESSION: Overall nonobstructive bowel gas pattern remains present.
--- NOTE | 2018-11-30 13:00 | P.PN ---
Subjective Progress Note Date: 11/30/18 Principal diagnosis: Abdominal pain 33-year-old female admitted with abdominal pain rectal bleeding abdominal imaging suggestive partial small bowel obstruction possible enteritis. Today she feels well requesting discharge. Abdominal pain improved. Passing flatus. Today ESR 8. CRP less than 5. Abdominal pain improved with dicyclomine. Tolerating regular diet. Abdominal x-rays nonobstructive bowel gas pattern. Objective - Vital Signs Vital signs: Vital Signs Temp 98.1 F 11/30/18 07:00 Pulse 62 11/30/18 12:21 Resp 16 11/30/18 12:21 BP 102/57 11/30/18 07:00 Pulse Ox 98 11/30/18 07:00 Intake & Output 11/29/18 11/30/18 11/30/18 18:59 06:59 18:59 Other: Voiding Method Toilet Toilet # Voids 2 - Exam General appearance: The patient is alert, oriented, in no acute distress. HET: Head is normocephalic and atraumatic. Pupils are equal and reactive. Oropharynx is clear without lesions. Neck: Supple without lymphadenopathy. Trachea midline. Heart: S1 S2. Regular rate and rhythm. Lungs: No crackles or wheezes are heard. Abdomen: Soft, mildly bloated mild tenderness to the midabdomen with bowel sounds. No peritoneal signs. No palpable organomegaly or masses. Extremities: Normal skin color and turgor. No cyanosis, rash, ulceration, clubbing, or edema. Radial and pedal pulses are 2/4 bilaterally. Neurological: No focal deficits. Strength and sensation are grossly intact. - Labs CBC & Chem 7: 11/29/18 07:00 11/29/18 07:00 Assessment and Plan (1) Abdominal pain Narrative/Plan: Acute abdominal pain blood per rectum with no increase in frequency of her bowel movements over 1 week's duration denies chronicity of her symptoms. CT suggested partial small bowel obstruction however repeat should resolution. X- rays this morning reported nonobstructive bowel gas pattern. Overall clinically improved. Inflammatory markers unremarkable. Possible gastritis possible functional bowel disease but etiologies cannot be excluded. Current Visit: Yes Status: Acute Code(s): R10.9 - UNSPECIFIED ABDOMINAL PAIN SNOMED Code(s): 45945427 Plan: 1. Agreeable for discharge. We'll provide prescription for dicyclomine. Return to GI office in 3-4 weeks for reevaluation.
[2018-11-30] MEDS: SODIUM CHLORIDE 0.9% 1,000 ML IV SCH (13:24)
[2018-11-30 15:30] VITALS: BP 137/91; PULSE 59; TEMP 98.2
--- NOTE | 2018-11-30 15:49 | DS ---
DISCHARGE SUMMARY CHIEF COMPLAINT: Abdominal pain. HISTORY OF PRESENT ILLNESS AND PHYSICAL EXAM: Details of this lady's history and physical can be found in the initial workup. LABORATORY STUDIES: While she was in the hospital, she had laboratory studies, details of which can be found in the laboratory section of her chart. COURSE IN HOSPITAL: After admission, she was placed on bedrest and started on intravenous fluids and she was seen by Gastroenterology. Because of the suggestion that she may have had a small bowel obstruction and history of hematochezia, she was worked up, but it was not felt that she would benefit from any further interventions at this time and that she could go home. She will go home on her usual diet and activity and she will be seen in the office in several days. If she continues to have trouble, she will be set up for lower GI endoscopy. FINAL DIAGNOSES: 1. Abdominal pain. 2. Resolving small bowel obstruction. 3. Hematochezia. OPERATIONS: None. CONSULTATIONS: Gastroenterology. She is improved. MMODL / IJN: [id number] /
== END 2018-11-30 14:56 | disposition home or self-care (01) | DRG 389 ==
LOC: EC 17:39 → 4SSUR 21:45 → OBSVTOIN 11-29 14:11
PROVIDERS: ADMIT Family Medicine; ATTEND Family Medicine
DX: K56.609 Unspecified intestinal obstruction, unspecified as to partial versus complete obstruction (principal); K92.1 Melena; Z82.49 Family history of ischemic heart disease and other diseases of the circulatory system; F17.200 Nicotine dependence, unspecified, uncomplicated; Z98.51 Tubal ligation status; Z84.89 Family history of other specified conditions; Z79.1 Long term (current) use of non-steroidal anti-inflammatories (NSAID); Z88.1 Allergy status to other antibiotic agents; Z88.8 Allergy status to other drugs, medicaments and biological substances
CPT/HCPCS: 36415; 74018; 74177; 80053; 81001; 81025; 83605; 83690; 84703; 85025; 85652; 86140; 96361; 96374; 96375; 96376; 99285

== ENCOUNTER 2018-12-28 08:11 | Day surgery (SDC) | payer OTHER ==
[2018-12-26 13:28] VITALS: BMI 21.4
[~2018-12-28 08:11] MED LIST: LACTATED RINGERS 1,000 ML IV SCH; LIDOCAINE 1% 20 ML VIAL (10MG/ML) FOR IV START INTRADERMA PRN
[2018-12-28 08:48] VITALS: TEMP 98.6
[2018-12-28] MEDS ORDERED: PROPOFOL 10 MG/ML 20 ML VIAL IV ONE (09:12)
[2018-12-28] MEDS ORDERED: LIDOCAINE 1% INJ 10MG/ML (20 ML MDV) ONE (09:12)
[2018-12-28] MEDS ORDERED: MIDAZOLAM 2 MG/2 ML VIAL ONE (09:12)
--- NOTE | 2018-12-28 09:34 | P.PCN ---
Date of Procedure: 12/28/18 Procedure(s) Performed: BRIEF HISTORY: Patient is a 33-year-old pleasant female scheduled for an elective colonoscopy as a part of the issue lower abdominal pain for the last 6 weeks duration. She has been having intermittent diarrhea with rectal bleeding. Usually has about 3-[address] of abdomen showed thickening of the terminal ileum suspicious for enteritis. PROCEDURE PERFORMED: Colonoscopy with biopsy. PREOPERATIVE DIAGNOSIS: Lower abdominal pain with intermittent rectal bleeding and diarrhea. IV sedation per Anesthesia. PROCEDURE: After informed consent was obtained, the patient, was brought into the endoscopy unit. IV sedation was administered by Anesthesia under continuous monitoring. Digital rectal examination was normal. Initially the Olympus CF-160 flexible video colonoscope was then inserted in the rectum, gradually advanced into the cecum without any difficulty. Careful examination was performed as the scope was gradually being withdrawn. Ileocecal valve and the appendiceal orifice were visualized and appeared normal. Terminal ileum was intubated and approximately 20 cm visualized appeared normal. Biopsies were done from this area. Prep was fair.. Mucosa of the cecum, ascending colon, transverse colon, descending colon, sigmoid colon, and rectum appeared normal. Biopsies were done from ascending and descending colon to rule out metastatic/collagenous colitis. Retroflexion was performed in the rectum and weight 2 internal hemorrhoids were seen. The patient tolerated the procedure well. IMPRESSION: Normal-appearing colon from rectum to cecum with no evidence of colitis or colon rectal neoplasia. Grade 2 internal hemorrhoids RECOMMENDATIONS: Findings of this examination were discussed with the patient as well as a family. She was advised to follow with the biopsy results. She'll be seen in office in 2 weeks..
[2018-12-28 09:56] VITALS: BP 121/77; PULSE 61; RESP 16
== END 2018-12-28 10:25 | disposition home or self-care (01) ==
LOC: ORWHC2ENDO 08:11
PROVIDERS: ATTEND Internal Medicine Gastroenterology
DX: R10.30 Lower abdominal pain, unspecified (principal); R19.7 Diarrhea, unspecified; K62.5 Hemorrhage of anus and rectum; K64.1 Second degree hemorrhoids; F17.210 Nicotine dependence, cigarettes, uncomplicated; Z98.51 Tubal ligation status; A63.0 Anogenital (venereal) warts; Z79.899 Other long term (current) drug therapy; Z88.0 Allergy status to penicillin; Z88.6 Allergy status to analgesic agent; Z88.1 Allergy status to other antibiotic agents
CPT/HCPCS: 88305; 45380; J2250; J2001; J2704

== ENCOUNTER 2020-07-04 21:22 | Emergency (ER) | payer OTHER ==
[2020-07-04 22:22] VITALS: BP 124/73; PULSE 77; RESP 20; TEMP 97.9
[2020-07-04] MEDS ORDERED: ACETAMINOPHEN TAB 500 MG TAB PO STA (22:34)
[2020-07-04] MEDS ORDERED: LIDOCAINE 1% INJ 10MG/ML (20 ML MDV) SQ ONE (22:34)
--- NOTE | 2020-07-04 23:09 | ED ---
Skin/Abscess/FB HPI - General Chief complaint: Skin/Abscess/Foreign Body Stated complaint: Abscess on chest Time Seen by Provider: 07/04/20 22:24 Source: patient, RN notes reviewed Mode of arrival: ambulatory Limitations: no limitations - History of Present Illness Initial comments: Patient is a 34 she'll female that presents to emergency room complaining of abscess to the middle of her chest. She notes she woke up with red bump on her chest and started squeezing it became painful she came to the emergency Department.. She denied any other complaints or issues. She noted that she wanted to get it drained as it was causing significant discomfort in her chest. She was well-appearing well-hydrated 34-year-old female in no apparent distress or pain while 7 the bed during exam and interview. She denied any chest pain first breath headache nausea vomiting diarrhea comes patient fever fatigue chills. - Related Data Previous Rx's Medication Instructions Recorded Dicyclomine [Bentyl] 20 mg PO QID PRN #120 tablet 11/30/18 Sulfamethox-Tmp 800-160Mg [Bactrim 1 each PO Q12HR #10 tab 07/04/20 Ds] Allergies Allergy/AdvReac Type Severity Reaction Status Date / Time azithromycin Allergy Unknown Anaphylaxis Verified 07/04/20 22:22 amoxicillin [Amoxicillin] Allergy Anaphylaxis Verified 07/04/20 22:22 ketorolac [From Toradol] Allergy Anaphylaxis Verified 07/04/20 22:22 Review of Systems ROS Statement: Those systems with pertinent positive or pertinent negative responses have been documented in the HPI. ROS Other: All systems not noted in ROS Statement are negative. Past Medical History Past Medical History: No Reported History Additional Past Medical History / Comment(s): Hospitalized @ [facility] November 2018 with partial SBO, gastroenteritis & blood in stools, Positive for HPV. History of Any Multi-Drug Resistant Organisms: None Reported Past Surgical History: Tubal Ligation Past Anesthesia/Blood Transfusion Reactions: No Reported Reaction Past Psychological History: No Psychological Hx Reported Smoking Status: Current every day smoker Past Alcohol Use History: Occasional Past Drug Use History: None Reported - Past Family History Mother Family Medical History: Deep Vein Thrombosis (DVT), Osteoarthritis (OA), Pulmonary Embolus Father Family Medical History: Coronary Artery Disease (CAD) Additional Family Medical History / Comment(s): Father has cardiac stents. General Exam Limitations: no limitations General appearance: alert, in no apparent distress Head exam: Present: atraumatic, normocephalic, normal inspection Eye exam: Present: normal appearance, PERRL, EOMI. Absent: scleral icterus, conjunctival injection, periorbital swelling ENT exam: Present: normal exam, mucous membranes moist Neck exam: Present: normal inspection. Absent: tenderness, meningismus, lymphadenopathy Respiratory exam: Present: normal lung sounds bilaterally. Absent: respiratory distress, wheezes, rales, rhonchi, stridor Cardiovascular Exam: Present: regular rate, normal rhythm, normal heart sounds. Absent: systolic murmur, diastolic murmur, rubs, gallop, clicks GI/Abdominal exam: Present: soft, normal bowel sounds. Absent: distended, tenderness, guarding, rebound, rigid Extremities exam: Present: normal inspection, full ROM, normal capillary refill. Absent: tenderness, pedal edema, joint swelling, calf tenderness Neurological exam: Present: alert, oriented X3, CN II-XII intact Psychiatric exam: Present: normal affect, normal mood Skin exam: Present: warm, dry, intact, normal color, other (Abscess to the middle of the chest measuring approximately 2 cm x 2 7 L.). Absent: rash Course Vital Signs 07/04/20 22:20 Temperature 97.9 F Pulse Rate 77 Respiratory 20 Rate Blood Pressure 124/73 O2 Sat by Pulse 100 Oximetry Procedures - Incision & Drainage Consent Obtained: verbal consent Site: chest Size (cm): 2 Anesthetic Used: lidocaine 2% Amount (mLs): 5 I&D Cleaning Method: Betadine Sterile Field Used?: Yes Scalpel Used: #11 Needle Aspiration Performed?: No Irrigation Performed?: No I&D Drainage Obtained: Pus, Blood Culture Obtained?: No Patient Tolerated Procedure: well, no complications Medical Decision Making - Medical Decision Making 34-year-old female abscess to the chest. Lidocaine, 15 mg of Toradol ordered. Patient tolerated incision and drainage well with no [place] issues. Case discussed with Dr. Mariano, patient can discharge home on antibiotics. Disposition Clinical Impression: Abscess Disposition: HOME SELF-CARE Condition: Stable Instructions (If sedation given, give patient instructions): Abscess Incision and Drainage (ED) Additional Instructions: Please return to the Emergency Department if symptoms worsen or any other concerns. Taken Biaxin as prescribed until complete. Follow-up with primary care in 3-5 days. Let abscess drain he'll naturally on its own. Is patient prescribed a controlled substance at d/c from ED?: No Referrals: Vamsi Lincoln MD [Primary Care Provider] - 1-2 days Time of Disposition: 23:08
== END 2020-07-04 23:46 | disposition home or self-care (01) ==
LOC: EC 21:22
DX: L02.213 Cutaneous abscess of chest wall (principal); Z98.51 Tubal ligation status; F17.200 Nicotine dependence, unspecified, uncomplicated
CPT/HCPCS: 99283; 10060; 96372; J2001

== ENCOUNTER 2022-07-01 02:03 | Emergency (ER) | payer OTHER ==
[2022-07-01] MEDS ORDERED: LIDOCAINE 1% INJ 10MG/ML (30 ML VIAL-PF) SQ ONE (02:14)
[2022-07-01] MEDS ORDERED: DIPH,PERTUS(ACELL)TETVAC-LF 0.5 ML VIAL IM ONE (02:14)
[2022-07-01 02:20] VITALS: BP 106/68; PULSE 81; RESP 16
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
== END 2022-07-01 03:36 | disposition home or self-care (01) ==
LOC: EC 02:03
DX: S41.112A Laceration without foreign body of left upper arm, initial encounter (principal); F17.200 Nicotine dependence, unspecified, uncomplicated; Z88.6 Allergy status to analgesic agent; Z88.0 Allergy status to penicillin; Z88.8 Allergy status to other drugs, medicaments and biological substances; Z23 Encounter for immunization; W13.4XXA Fall from, out of or through window, initial encounter
CPT/HCPCS: 12002; 90471; 90715; 99282

== ENCOUNTER 2022-07-23 01:45 | Emergency (ER) | payer OTHER ==
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
[2022-07-23 03:10] LABS: Basophils # (A) 0.1 k/uL (0-0.2); Basophils % (A) 1 %; Eosinophils # (A) 0.4 k/uL (0-0.7); Eosinophils % (A) 4 %; HCT 41.6 % (34.0-46.0); HGB 13.4 gm/dL (11.4-16.0); Lymphocytes # (A) 3.4 k/uL (1.0-4.8); Lymphocytes % (A) 34 %; MCH 29.2 pg (25.0-35.0); MCHC 32.2 g/dL (31.0-37.0); MCV 90.8 fL (80.0-100.0); Mean Platelet Volume 6.9; Monocytes # (A) 0.5 k/uL (0-1.0); Monocytes % (A) 6 %; Neutrophils % (A) 51 %; Platelet Count 347 k/uL (150-450); RBC 4.59 m/uL (3.80-5.40); RDW 15.2 % (11.5-15.5); WBC 9.8 k/uL (3.8-10.6)
[2022-07-23 03:35] LABS: African American GFR (CKD) >90 (>60 ml/min/1.73 sqM); Anion Gap 11 mmol/L; Blood Urea Nitrogen 7 mg/dL (7-17); Calcium 9.5 mg/dL (8.4-10.2); Carbon Dioxide 22 mmol/L (22-30); Chloride 110 mmol/L (98-107); Glucose 98 mg/dL (74-99); Non-African American GFR(CKD) >90 (>60 ml/min/1.73 sqM); Potassium 4.4 mmol/L (3.5-5.1); Sodium 143 mmol/L (137-145)
[2022-07-23 03:38] LABS: Alcohol 280 mg/dL
[2022-07-23 03:51] LABS: HCG,Quantitative Serum <2.4 mIU/mL
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
[2022-07-23 06:35] VITALS: BP 136/84; PULSE 74; RESP 16
[2022-07-23 08:14] LABS: Amphetamine Screen,Urine Not Detected (NotDetected); Barbiturate Screen,Urine Not Detected (NotDetected); Benzodiazepines Screen,Urine Not Detected (NotDetected); Cocaine Screen,Urine Not Detected (NotDetected); Methadone Screen, Urine Not Detected (NotDetected); Opiate Screen,Urine Not Detected (NotDetected); Oxycodone Screen, Urine Not Detected (NotDetected); Phencyclidine Screen,Urine Not Detected (NotDetected); Tricyclic Antidepressant,Urine Not Detected (NotDetected); Urn Cannabinoid Scrn Not Detected (NotDetected)
== END 2022-07-23 07:18 | disposition home or self-care (01) ==
LOC: EC 01:45
DX: T74.11XA Adult physical abuse, confirmed, initial encounter (principal); F17.200 Nicotine dependence, unspecified, uncomplicated; Z88.0 Allergy status to penicillin; Z88.6 Allergy status to analgesic agent; Z88.8 Allergy status to other drugs, medicaments and biological substances
CPT/HCPCS: 36415; 80048; 85025; 84702; 80306; 72125; 70450; 99285; G0480; 80320